=== PATIENT | female | born 1975 | race Caucasian/White ===

== ENCOUNTER 2017-05-11 07:20 | Inpatient (IN) | payer BC ==
[~2017-05-11 07:20] MED LIST: Midazolam 1 MG/ML 2 ML SDV ONE; Propofol 200 MG/20 ML SDV ONE; fentaNYL 100 MCG/2 ML SDV ONE
[2017-05-11] MEDS ORDERED: Cyanocobalamin (Vitamin B12) 1,000 MCG/ML SDV IM ONE (08:00)
[2017-05-11] MEDS ORDERED: Glycopyrrolate 0.2 MG/ML 2 ML SDV IVPUSH ONE (08:00)
[2017-05-11] MEDS ORDERED: Lactated Ringers 1,000 ML IV SCH (08:00)
[2017-05-11] MEDS ORDERED: MVI, Adult with Vitamin K 10 ML, Thiamine 200 MG, Chromium/Copper/Mang/Selen/Zn 1 ML in... IV ONE ×4 (09:00)
[2017-05-11] MEDS ORDERED: Ondansetron 4 MG/2 ML SDV ONE (09:48)
[2017-05-11] MEDS ORDERED: HYDROmorphone/Normal Saline 15 MG/30 ML PCA IV PRN (10:54)
[2017-05-11] MEDS ORDERED: Naloxone 0.4 MG/ML SDV IV PRN (10:55)
[2017-05-11] MEDS: Dextrose 5%-Lactated Ringers 1,000 ML IV SCH ×2 (11:05→19:18)
[2017-05-11] MEDS: Pantoprazole 40 MG Vial IV SCH (14:13)
[2017-05-11] MEDS: Ondansetron 4 MG/2 ML SDV IVPUSH PRN ×2 (14:15→21:42)
[2017-05-11] MEDS: Methocarbamol 500 MG Tab PO SCH ×2 (14:16→21:38)
[2017-05-11] MEDS ORDERED: Scopolamine 1.5 MG Transdermal Patch TRDERM PRN (17:46)
[2017-05-11] MEDS: Hydroxychloroquine 200 MG Tab PO SCH (21:37)
[2017-05-11] MEDS ORDERED: fentaNYL 25 MCG/HR Transdermal Patch TRDERM SCH (23:59)
[2017-05-12] MEDS ORDERED: fentaNYL 25 MCG/HR Transdermal Patch TRDERM SCH
[2017-05-12] MEDS: Dextrose 5%-Lactated Ringers 1,000 ML IV SCH ×2 (03:16→11:15)
[2017-05-12] MEDS ORDERED: Bupivacaine 0.5%/EPINEPHrine 1:200,000 50 ML MDV ONE (06:00)
[2017-05-12] MEDS ORDERED: Meropenem 500 MG SDV ONE (06:00)
[2017-05-12] MEDS ORDERED: Albuterol/Ipratropium 3.0-0.5 MG/3 ML Neb Soln NEB ONE (06:30)
[2017-05-12] MEDS ORDERED: Dexamethasone 4 MG/ML SDV ONE (06:40)
[2017-05-12] MEDS ORDERED: Ondansetron 4 MG/2 ML SDV ONE (06:40)
[2017-05-12] MEDS ORDERED: Rocuronium 50 MG/5 ML Vial ONE (06:40)
[2017-05-12] MEDS ORDERED: Neostigmine Methylsulfate 1 MG/ML 5 ML Syringe ONE (06:40)
[2017-05-12] MEDS ORDERED: Glycopyrrolate 0.2 MG/ML 5 ML MDV ONE (06:40)
[2017-05-12] MEDS ORDERED: Succinylcholine 200 MG/10 ML MDV ONE (06:40)
[2017-05-12] MEDS ORDERED: Propofol 200 MG/20 ML SDV ONE (06:40)
[2017-05-12] MEDS ORDERED: cefOXitin 2 GM in Sodium Chloride 0.9% 50 ML IV ONE (07:00)
[2017-05-12] MEDS ORDERED: Lactated Ringers 1,000 ML ONE (07:09)
[2017-05-12] MEDS ORDERED: fentaNYL 250 MCG/5 ML SDV ONE (08:04)
[2017-05-12] MEDS ORDERED: hydrOXYzine HCl 100 MG/2 ML SDV IM ONE (08:20)
[2017-05-12] MEDS ORDERED: VERIFY FENTANYL PATCH TOP SCH (09:00)
[2017-05-12] MEDS ORDERED: FENTANYL PATCH CHECK TOP SCH (09:00)
[2017-05-12] MEDS: VERIFY SCOP PATCH TOP SCH (09:47)
[2017-05-12] MEDS ORDERED: diphenhydrAMINE 50 MG/ML SDV IVPUSH PRN (11:00)
[2017-05-12] MEDS ORDERED: SCOPOLAMINE PATCH CHECK TOP SCH (11:00)
[2017-05-12] MEDS ORDERED: Labetalol 20 MG/4 ML Syringe IVPUSH PRN (11:00)
[2017-05-12] MEDS ORDERED: hydrOXYzine HCl 100 MG/2 ML SDV IM PRN (11:00)
[2017-05-12] MEDS: Pantoprazole 40 MG Vial IV SCH (11:19)
[2017-05-12] MEDS: Acetaminophen Soln 650 MG/20.3 ML UD Cup PO SCH ×3 (11:19→23:33)
[2017-05-12] MEDS: cefOXitin 2 GM in Sodium Chloride 0.9% 50 ML IV SCH ×3 (11:36→23:33)
[2017-05-12] MEDS: Hydroxychloroquine 200 MG Tab PO SCH (12:03)
[2017-05-12] MEDS: Methocarbamol 500 MG Tab PO SCH (12:03)
[2017-05-12] MEDS: Ondansetron 4 MG/2 ML SDV IVPUSH PRN (15:06)
[2017-05-12] MEDS ORDERED: MVI, Adult with Vitamin K 10 ML, Chromium/Copper/Mang/Selen/Zn 1 ML in Dextrose 5%-Lact... IV SCH ×3 (16:00)
[2017-05-12] MEDS: Gabapentin 250 MG/5 ML Solution ML 470 ML Bottle PO SCH ×2 (16:50→20:04)
[2017-05-12] MEDS: MVI, Adult with Vitamin K 10 ML, Thiamine 200 MG, Chromium/Copper/Mang/Selen/Zn 1 ML in... IV SCH ×4 (16:50)
[2017-05-12] MEDS: Heparin Sodium 5,000 Units/ML Vial SUBCUT SCH (17:27)
[2017-05-12] MEDS ORDERED: Hydroxychloroquine 200 MG Tab PO SCH (21:00)
[2017-05-12] MEDS: VERIFY FENTANYL PATCH TOP SCH (21:29)
[2017-05-13] MEDS: Heparin Sodium 5,000 Units/ML Vial SUBCUT SCH ×2 (03:34→15:32)
[2017-05-13] MEDS: cefOXitin 2 GM in Sodium Chloride 0.9% 50 ML IV SCH (05:26)
[2017-05-13] MEDS: Acetaminophen Soln 650 MG/20.3 ML UD Cup PO SCH ×3 (05:26→17:05)
[2017-05-13] MEDS: Methocarbamol 500 MG Tab PO SCH ×3 (08:23→21:52)
[2017-05-13] MEDS: Celecoxib 200 MG Cap PO SCH (08:23)
[2017-05-13] MEDS: Hydroxychloroquine 200 MG Tab PO SCH (08:23)
[2017-05-13] MEDS: VERIFY FENTANYL PATCH TOP SCH ×2 (08:24→21:50)
[2017-05-13] MEDS: VERIFY SCOP PATCH TOP SCH (08:24)
[2017-05-13] MEDS ORDERED: METHOCARBAMOL 1500 MG PO SCH (09:00)
[2017-05-13] MEDS ORDERED: Hydroxychloroquine 200 MG Tab PO SCH (09:00)
--- NOTE | 2017-05-13 09:11 | PN ---
DATE OF SERVICE: 05/13/2017 SUBJECTIVE: Alison had a temp max of 101.3. She has been up, ambulating. IV was decreased last night due to increase of urine output. REVIEW OF SYSTEMS: Remainder of review of systems is negative for any pertinent positives and negatives. OBJECTIVE: GENERAL: Alison Santillan is a pleasant 41-year-old female. VITAL SIGNS: TPR is 98.9, 91, 17, blood pressure 125/65. HEENT: Negative. NECK: Supple. HEART: Regular rate and rhythm. LUNGS: Clear. ABDOMEN: Dressings dry and intact. Abdominal binder is on. EXTREMITIES: Without peripheral edema. ASSESSMENT: 1. Exploratory laparotomy with revision of the jejunostomy, and placement of Interceed mesh. Date of surgery 05/12/2017. 2. Esophagogastroduodenoscopy on 05/11/2017. Leonidas Sam M.D. PLAN: 1. Discontinue RHEUMATOLOGY SPECIALIST and continuous pulse ox. 2. Rx Percocet 5/325 mg 1 to 2 every 4 hours p.r.n. pain. 3. Step 2 gastric bypass diet. 4. Senokot-S 2 b.i.d. May discontinue after having a bowel movement. 5. Discontinue Allison catheter. Check UA and UC before discontinuing catheter. 6. Home medications were reviewed and ordered according to what she takes at home. Plaquenil 400 mg p.o. daily, and she takes methocarbamol 1500 mg t.i.d. Neurontin, she prefers to have that over the gabapentin. Gabapentin was discontinued. 7. Good pulmonary toilet encouraged. 8. We will evaluate p.r.n. or in a.m. Suzie Sarmiento PA-C /[id number]
[2017-05-13] MEDS: Dextrose 5%-Lactated Ringers 1,000 ML IV SCH ×2 (11:48→21:25)
[2017-05-13] MEDS: Pantoprazole 40 MG Vial IV SCH (11:48)
[2017-05-13] MEDS: Acetaminophen/oxyCODONE 325-5 MG Tab PO PRN ×3 (14:58→23:25)
[2017-05-13] MEDS: MVI, Adult with Vitamin K 10 ML, Thiamine 200 MG, Chromium/Copper/Mang/Selen/Zn 1 ML in... IV SCH ×4 (15:32)
[2017-05-13] MEDS: Ondansetron 4 MG/2 ML SDV IVPUSH PRN (19:17)
[2017-05-14] MEDS: Acetaminophen Soln 650 MG/20.3 ML UD Cup PO SCH ×2 (00:37→06:14)
[2017-05-14] MEDS: Heparin Sodium 5,000 Units/ML Vial SUBCUT SCH ×2 (04:11→17:09)
[2017-05-14] MEDS: Dextrose 5%-Lactated Ringers 1,000 ML IV SCH ×2 (06:31→22:30)
[2017-05-14] MEDS ORDERED: Acetaminophen 325 MG Tab PO PRN (07:14)
[2017-05-14] MEDS ORDERED: Sodium Chloride 0.9% 10 ML Syringe FLUSH ONE (07:36)
[2017-05-14] MEDS ORDERED: Iohexol 300 MG/ML 30 ML Bottle PO ONE (07:36)
[2017-05-14] MEDS ORDERED: Iopamidol 612 MG/ML 150 ML Bottle IV PRN (07:36)
[2017-05-14] MEDS ORDERED: Cyanocobalamin (Vitamin B12) 1,000 MCG/ML SDV IM ONE (09:00)
[2017-05-14] MEDS: Acetaminophen/oxyCODONE 325-5 MG Tab PO PRN ×3 (09:05→22:19)
[2017-05-14] MEDS: Hydroxychloroquine 200 MG Tab PO SCH (09:08)
[2017-05-14] MEDS: Methocarbamol 500 MG Tab PO SCH ×3 (09:09→20:36)
[2017-05-14] MEDS: Celecoxib 200 MG Cap PO SCH (09:09)
[2017-05-14] MEDS: VERIFY SCOP PATCH TOP SCH (09:15)
[2017-05-14] MEDS: VERIFY FENTANYL PATCH TOP SCH ×2 (09:15→20:37)
--- NOTE | 2017-05-14 09:17 | CT ---
Abdomen pelvis CT. History: Right abdominal pain. Postoperative abdomen. Technique: IV and oral contrast were administered followed by axial imaging from the lung bases exten ding through the abdomen and pelvis. Coronal images were reconstructed. Total DLP: 1276. Comparison: June 2014. Findings: Limited evaluation of the lower lung urena demonstrates no abnormalities. There are postoperative findings consistent with a prior gastric bypass procedure. There is no disten tion of the stomach. There is a surgical incision of the anterior abdominal wall with clips. Just braden p to the incision is a small collection of fluid as well as a small amount of air which is most consi stent with the recent postoperative change. A developing abscess cannot be excluded. In the inferior aspect of the right pelvis there is a surgical anastomosis which appears to involve small bowel. Ther e is no significant large or small bowel distention. There is trace free fluid within the pelvis. Th e liver, pancreas, and spleen are unremarkable. The adrenal glands are symmetric. The kidneys demonst rate symmetric excretion of contrast. Impression: 1. Surgical anastomosis in the lower aspect of the right pelvis without evidence for complication. Th ere is no significant large or small bowel distention. 2. Small collection of air and fluid deep to the midline surgical incision. Correlate with timing of surgery. The finding is likely secondary to recent surgery rather than abscess. 3. Stable postoperative findings of prior gastric bypass procedure.
[2017-05-14] MEDS ORDERED: Magnesium Citrate Solution 296 ML Bottle PO ONE (10:00)
--- NOTE | 2017-05-14 10:30 | CR ---
Limited upper GI The patient is status post Jorge-en-Y gastric bypass. . There is no extravasation of contrast. The gas tric pouch empties readily into a nondilated Jorge limb. No complications are evident. Impression: 1. Status post Jorge-en-Y gastric bypass without evidence for complication.
[2017-05-14] MEDS: Lansoprazole 30 MG Orally Disintegrating Tab.CR PO SCH (11:20)
--- NOTE | 2017-05-14 13:30 | PN ---
DATE OF SERVICE: 05/14/2017 SUBJECTIVE: Alison is postop day #2. She reports an increased amount of pain. Her pain is on the right side of her incision and is an area of 6 inches that wraps around to her right flank area. She states that even brushing her skin will cause intense pain. Difficult for her to move in bed. She is not passing flatus. She was started on Senna Plus 2 tabs twice a day yesterday. She has been up ambulating, states sat on a chair quite a bit yesterday. Temperature max of 100.1 Oral intake 1530. Urine output 4250. She has had 100% of breakfast, 100% of dinner, nothing was recorded for lunch. MIKE drain put out 5 mL of a serosanguineous drainage. REVIEW OF SYSTEMS: Remainder of review of systems negative for any pertinent positives and negatives. OBJECTIVE: GENERAL: Alison Santillan is a pleasant 41-year-old female. VITAL SIGNS: TPR is 99.9, 81, 16, and blood pressure 115/60. HEENT: Negative. NECK: Supple. HEART: Regular rate and rhythm. LUNGS: Clear. ABDOMEN: Aquasol dressing is on, difficult time rolling to her back. Not able to really palpate abdomen, just getting near her skin or barely touching her skin causes increasing amount of pain. She states "something is really wrong." MIKE drain intact. EXTREMITIES: SCDs are on, and there is no peripheral edema. ASSESSMENT: Exploratory laparotomy with resection of jejunostomy and separate jejunostomy to restore Jorge-en-Y anatomy for partial small bowel obstruction at the jejunostomy. Date of surgery 05/12/2017. PLAN: 1. Remove Aquacel dressing. 2. Discontinue schedule Tylenol and change to p.r.n. 3. CT scan of abdomen and pelvis with oral and IV contrast. 4. Call with CT results. If CT scan is negative, we will give 1 bottle of MiraLAX. 5. Good pulmonary toilet encouraged. 6. We will evaluate p.r.n. or in a.m. Suzie Sarmiento PA-C /[id number]
[2017-05-14] MEDS: Ondansetron 4 MG/2 ML SDV IVPUSH PRN (13:40)
[2017-05-14] MEDS: MVI, Adult with Vitamin K 10 ML, Thiamine 200 MG, Chromium/Copper/Mang/Selen/Zn 1 ML in... IV SCH ×4 (17:08)
[2017-05-15] MEDS: Heparin Sodium 5,000 Units/ML Vial SUBCUT SCH ×2 (04:08→15:59)
[2017-05-15] MEDS: Acetaminophen/oxyCODONE 325-5 MG Tab PO PRN ×5 (04:09→22:55)
[2017-05-15] MEDS: Lansoprazole 30 MG Orally Disintegrating Tab.CR PO SCH (07:42)
--- NOTE | 2017-05-15 08:33 | PN ---
DATE OF SERVICE: 05/15/2017 SUBJECTIVE: Alison had magnesium citrate . Her CT was negative. She is starting to pass some flatus. Temp max 100. Pain is controlled. She declined to walk yesterday stating she overdid it on Sunday. REVIEW OF SYSTEMS: Remainder of review of systems negative for any pertinent positives and negatives. OBJECTIVE: GENERAL: Alison Santillan is a 41-year-old female. Color pale. She is lying in bed. VITAL SIGNS: TPR 97.6, 71, 18. Blood pressure 127/75. HEENT: Negative. NECK: Supple. HEART: Regular rate and rhythm. LUNGS: Clear. ABDOMEN: Aquacel dressing remains on. MIKE drain midline has been draining 5 mL of a light pink serosanguineous drainage. EXTREMITIES: Without peripheral edema. ASSESSMENT: Exploratory laparotomy with resection of the jejunostomy and separate jejunostomy to restore Jorge-en-Y anatomy for partial small bowel obstruction at the jejunostomy. Date of surgery 05/12/2017. PLAN: 1. Order written to remove Aquacel dressing again. 2. Dulcolax suppository b.i.d. until BM. 3. Dulcolax tabs 2 b.i.d. until BM. 4. Walk 6 to 8 times short distances, not to overdo it but just short distance as tolerated. 5. No straw to be used. The patient is Jorge-en-Y gastric bypass patient. 6. May be discharged when she has a bowel movement. 7. IV saline locked. 8. We will evaluate silver Sarmiento PA-C /[id number]
[2017-05-15] MEDS: Methocarbamol 500 MG Tab PO SCH ×3 (08:35→21:09)
[2017-05-15] MEDS: Celecoxib 200 MG Cap PO SCH (08:35)
[2017-05-15] MEDS: Hydroxychloroquine 200 MG Tab PO SCH (08:36)
[2017-05-15] MEDS: VERIFY SCOP PATCH TOP SCH (08:36)
[2017-05-15] MEDS: VERIFY FENTANYL PATCH TOP SCH ×2 (08:36→21:08)
[2017-05-15] MEDS: Bisacodyl 10 MG Supp RECTAL SCH ×3 (08:39→21:09)
[2017-05-15] MEDS ORDERED: Bisacodyl 5 MG Tab PO SCH (09:00)
[2017-05-15] MEDS: Ondansetron 4 MG/2 ML SDV IVPUSH PRN (10:14)
[2017-05-15] MEDS ORDERED: Ondansetron 4 MG Tab.DIS PO PRN (11:01)
[2017-05-16] MEDS: Acetaminophen/oxyCODONE 325-5 MG Tab PO PRN ×3 (02:39→13:34)
[2017-05-16] MEDS: Heparin Sodium 5,000 Units/ML Vial SUBCUT SCH (03:16)
[2017-05-16] MEDS: Celecoxib 200 MG Cap PO SCH (07:54)
[2017-05-16] MEDS: Lansoprazole 30 MG Orally Disintegrating Tab.CR PO SCH (07:54)
[2017-05-16] MEDS: VERIFY FENTANYL PATCH TOP SCH (07:59)
[2017-05-16] MEDS: Bisacodyl 10 MG Supp RECTAL SCH (07:59)
[2017-05-16] MEDS: VERIFY SCOP PATCH TOP SCH (08:00)
[2017-05-16] MEDS: Methocarbamol 500 MG Tab PO SCH (08:03)
[2017-05-16] MEDS: Hydroxychloroquine 200 MG Tab PO SCH (08:03)
--- NOTE | 2017-05-16 08:07 | PN ---
DATE OF SERVICE: 05/16/2017 SUBJECTIVE: Alison is postop day #4. She has had bowel stimulation but is unable to have a bowel movement. She is receiving Dulcolax suppository twice a day and she did have Dulcolax tabs in a.m. which caused some bloating, nausea, and excessive cramping. She did have one tiny hard marble type stool. Oral intake was 2310. Pain is controlled. REVIEW OF SYSTEMS: Remainder of review of systems is negative for any pertinent positives and negatives. OBJECTIVE: GENERAL: Alison Santillan is a 41-year-old female. VITAL SIGNS: TPR is 97.3, 94, 16, blood pressure 134/75. HEENT: Negative. NECK: Supple. HEART: Regular rate and rhythm. LUNGS: Clear. ABDOMEN: Stapled incision looks good. She has a midline MIKE drain which is putting out no drainage. There is some pink serous drainage in the tubing. Abdominal binder has been on. EXTREMITIES: Without peripheral edema. ASSESSMENT: Exploratory laparotomy with resection of jejunostomy and separate jejunostomy to restore Jorge-en-Y anatomy for partial small bowel obstruction at the jejunostomy. Date of surgery 05/12/2017. Surgeon, Leonidas Sam M.D. PLAN: 1. MiraLAX 119 g in 32 ounces of Gatorade or G2. She prefers [place] flavor, to drink within 20-30 minutes. 2. Good pulmonary toilet. 3. We will evaluate p.r.n. or in a.m. Suzie Sarmiento PA-C /[id number]
[2017-05-16 08:15] VITALS: BP 142/78
[2017-05-16] MEDS ORDERED: Polyethylene Glycol 3350 Powder 119 GM Bottle PO ONE (09:00)
--- NOTE | 2017-05-16 14:52 | OR ---
DATE OF PROCEDURE: 05/11/2017 PREOPERATIVE DIAGNOSIS: Nausea, vomiting, and crampy abdominal pain status post Jorge-en-Y gastric bypass. POSTOPERATIVE DIAGNOSIS: Normal endoscopic examination status post Jorge-en-Y gastric bypass (thus the diagnosis likely is a partial small bowel obstruction). OPERATIVE PROCEDURE: Upper GI endoscopy with biopsies of gastric pouch for CLOtest. ANESTHESIA: IV sedation. INDICATION FOR PROCEDURE: This is a 41-year-old female presenting with some crampy abdominal pain, nausea and vomiting, status post gastric bypass. Plan is to proceed initially with an upper GI endoscopy. Potential risks including bleeding and perforation were discussed, and the patient wishes to proceed. DETAILS OF PROCEDURE: The patient was taken to the operating room and placed in a left lateral decubitus position. IV sedation was administered, after which the upper GI endoscope was passed orally through the length of the esophagus into the gastric pouch and from there through the gastrojejunostomy roughly 20 cm into the Jorge limb. Findings exam were essentially entirely normal. There was no areas of significant stricturing or significant inflammation seen. The gastrojejunostomy was widely patent. At this point, biopsies were obtained from the gastric pouch and sent for CLOtest for H. pylori. Minimal bleeding from the biopsy site was seen and the procedure was then concluded. Given the absence of any abnormalities in the upper GI endoscopy, this patient by clinical criteria appears to most likely have a partial small bowel obstruction. The patient will be admitted for hydration and planned surgical correction tomorrow. Leonidas Sam MD /[id number]
--- NOTE | 2017-05-16 17:16 | OR ---
DATE OF PROCEDURE: 05/12/2017 PREOPERATIVE DIAGNOSIS: Partial small bowel obstruction. POSTOPERATIVE DIAGNOSES: 1. Partial small bowel obstruction at jejunojejunostomy. 2. Marked intraabdominal adhesions. OPERATIVE PROCEDURES: Exploratory laparotomy with; 1. Small bowel resection (73076). 2. Separate enteroenterostomy to reconstruct the patient's Jorge-en-Y small bowel status (69831). 3. Placement of Interceed mesh to limit recurrent adhesion formation between pelvic and abdominal wall and underlying viscera (71875). ANESTHESIA: General. CELL ROOM OPERATOR: GAY Guzman. INDICATION FOR PROCEDURE: The patient was seen yesterday with what appeared to be a partial small bowel obstruction and was admitted overnight. We initially did discuss the possibility of proceeding with a laparoscopy, but given her previous surgical procedures, and diagnosis of the small bowel obstruction and some fairly distended bowel on CT scan, the decision was made to proceed with a direct open approach. The patient has quite a bit in way of diarrhea and has presently a fairly short common limb. It was discussed with the patient that if we need to do a bowel resection, this will just be less of a problem. Potential risks including bleeding, infection, leaks from various GI tract closures, problems with further bowel obstruction over time and such were all reviewed, and the patient wishes to proceed. DETAILS OF PROCEDURE: The patient was taken to the operating room and placed in a supine position. After general endotracheal anesthesia was induced, a Allison catheter was inserted, and the abdomen was prepped and draped. A midline incision was made and carried down through the full-thickness abdominal wall. Fairly extensive adhesions between the anterior abdominal wall and omentum and small bowel were then taken down. The point of obstruction appeared to be a fixed angulation at the jejunojejunostomy where the Jorge limb came in to that area. The 3 components of the jejunojejunostomy were then divided with NETO joshua loads, and the underlying mesentery divided with mesenteric loads and that specimen was delivered from the field. Initially, what had been the biliopancreatic limb was anastomosed to the end of what would be the origin of the common limb, this with an internal firing of the EndoGIA vascular stapler, and the common opening closed transversely with the same stapler. Angles of anastomosis and mesenteric defect were reinforced with some 3-0 Vicryl stitch. The patient's previous jejunojejunostomy had been marked out only around 100 cm and, at this point, we moved the anastomosis up to around 280 to 300 cm range. At that point, the Jorge limb, which was also measured at this point to be 120 cm was anastomosed with small bowel at that level with the same sequence of jovanna. Again, the angles of anastomosis and mesenteric defect were reapproximated with some 3-0 Vicryl and silk stitch. At that point, no further problems were noted. The abdomen was irrigated with antibiotic-containing saline solution. To limit recurrent adhesion formation, an Interceed mesh was placed along the pelvic blanchard, up against the abdominal wall, underneath the incision. The midline fascia was then approximated with a #2 Vicryl stitch. A Justin-Choudhury drain was then placed inferior to the incision into the subcutaneous tissue. The subcutaneous tissue was closed with 2 layers of 3-0 and 4-0 Vicryl stitch deep and jovanna for the skin. Dressing was applied. The patient was taken to the recovery room in a satisfactory condition. Leonidas Sam MD /[id number]
--- NOTE | 2017-05-18 13:12 | DISCH ---
ADMISSION DIAGNOSES: Postprandial abdominal pain, nausea and vomiting; status post revision of Jorge-en-Y gastric bypass surgery; unspecified surgical malabsorption; B12 deficiency; and chronic diarrhea. DISCHARGE DIAGNOSES: 1. EGD and biopsies of gastric pouch for CLOtest. Date of procedure, 05/11/2017. 2. Exploratory laparotomy with small bowel resection, separate enteroenterostomy to reconstruct the patient's Jorge-en-Y small bowel status, and placement of Interceed mesh to limit recurrent adhesion formation between the pelvic and abdominal wall and underlying viscera for partial small bowel obstruction at the jejunojejunostomy and marked intraabdominal adhesions. Date of surgery is 05/12/2016. HISTORY: Alison Santillan is a pleasant female who had persistent postprandial abdominal pain and cramping. After preoperative evaluation and discussion of possible risks and possible complications, she wished to proceed with surgical procedure. HOSPITAL COURSE: She had EGD on 05/11/2017 and proceeded to have her surgery on 05/12/2017. She had no operative complications. On postop day #1, she was started on oral pain medication, a step-2 gastric bypass diet, and Senokot S. On 05/14/2017, she reported an increased amount of pain on the right side. She did have a CT scan. This was negative, and she was given mag citrate for bowel stimulation. On 05/15/2017, her IV was saline locked. She was given Dulcolax tabs 2 b.i.d. and suppository. She started passing some flatus, but did not have a bowel movement until 05/16/2017, on postop day #4. Activity was good. Her pain was well managed. She received adequate dietary instructions, and she was ready to be discharged to home. PHYSICAL EXAMINATION: GENERAL: Alison Santillan is a 41-year-old female. VITAL SIGNS: Height is 5 feet 3 inches. Weight is 199 pounds. BMI is 35.3. TPR is 98.8, 84, 14, and blood pressure 142/78. HEENT: Negative. NECK: Supple. HEART: Regular rate and rhythm. LUNGS: Clear. ABDOMEN: Jacey intact. Midline MIKE drain is intact and draining scant amount of light pink drainage. EXTREMITIES: Without peripheral edema. DISPOSITION: Discharged to home. CONDITION: Stable and improving. FOLLOWUP APPOINTMENT: With Suzie Sarmiento PA-C, on 05/22/2017 at 11 a.m. DISCHARGE MEDICATIONS: Home medications; Percocet 5/325 mg 1 to 2 every 4 hours p.r.n. pain, #40; Celebrex 200 mg p.o. daily, #14. She is to resume her home medications. DISCHARGE DIET: Step-3 gastric bypass diet. Drink 8 to 10 glasses of water a day. ACTIVITY: No lifting greater than 10 pounds for 6 weeks[address]riving, do not drive while on pain medication. Shower/bathing, keep operative site clean and dry. Wear abdominal binder for 6 weeks and then as tolerated. DISCHARGE INSTRUCTIONS: Notify provider if any fever, increased pain, nausea, or vomiting. Special instructions; 1. Use incentive spirometer 10 times every hour while awake. 2. Empty and measure MIKE drain 4 times a day and as needed.
== END 2017-05-16 14:03 | disposition home or self-care (01) | DRG 223 ==
LOC: JP.MS 07:20 → JP.SDS 07:21 → EDSTATUS 07:30 → JP.ICU 10:10 → JP.MS 05-12 09:00
PROVIDERS: ADMIT Surgery; ATTEND Surgery
PROC: 0DB68ZX Excision of Stomach, Via Natural or Artificial Opening Endoscopic, Diagnostic (ICD-10-PCS; principal; 2017-05-11)
PROC: 3E0M05Z Introduction of Adhesion Barrier into Peritoneal Cavity, Open Approach (ICD-10-PCS; 2017-05-12)
PROC: 0DN80ZZ Release Small Intestine, Open Approach (ICD-10-PCS; 2017-05-12)
PROC: 0DBA0ZZ Excision of Jejunum, Open Approach (ICD-10-PCS; 2017-05-12)
DX: K56.51 Intestinal adhesions [bands], with partial obstruction (principal); I10 Essential (primary) hypertension; G89.29 Other chronic pain; F32.9 Major depressive disorder, single episode, unspecified; K21.9 Gastro-esophageal reflux disease without esophagitis; J45.909 Unspecified asthma, uncomplicated; E55.9 Vitamin D deficiency, unspecified; Z98.84 Bariatric surgery status; Z98.0 Intestinal bypass and anastomosis status; K92.1 Melena; E53.8 Deficiency of other specified B group vitamins; K90.9 Intestinal malabsorption, unspecified; R19.7 Diarrhea, unspecified
CPT/HCPCS: 36415; 74177; 74177-26; 74240; 74240-26; 80053; 81001; 82607; 82728; 83735; 84100; 85027; 87081; 88307; 94640; 94762; A9270-GY; C9113; J0330; J0694; J1100; J1170; J1644; J2185; J2250; J2405; J2704; J2710; J3010; J3410; J3411; J3420; J3490; J7030; J7042; J7050; J7120; J7620; Q9965

== ENCOUNTER 2018-02-12 12:54 | Inpatient (IN) | payer BC, OTHER ==
[2018-02-12] MEDS ORDERED: Acetaminophen 325 MG Tab PO PRN (13:20)
[2018-02-12] MEDS ORDERED: Acetaminophen 650 MG Supp RECTAL PRN (13:20)
[2018-02-12] MEDS ORDERED: HYDROmorphone 2 MG Tab PO PRN (13:24)
[2018-02-12] MEDS ORDERED: Naloxone 0.4 MG/ML SDV IV PRN (13:29)
[2018-02-12] MEDS: Ondansetron 4 MG/2 ML SDV IV PRN ×2 (13:55→19:54)
[2018-02-12] MEDS: HYDROmorphone/Normal Saline 15 MG/30 ML PCA IV PRN (13:57)
[2018-02-12] MEDS: Dextrose 5%-Lactated Ringers 1,000 ML IV SCH ×2 (14:00→23:29)
[2018-02-12] MEDS ORDERED: Iopamidol 612 MG/ML 150 ML Bottle IV PRN (14:35)
[2018-02-12] MEDS ORDERED: Sodium Chloride 0.9% 80 ML IV SCH (14:45)
--- NOTE | 2018-02-12 15:09 | CT ---
CT Abdomen Pelvis w Cont CLINICAL HISTORY: Postprandial pain COMPARISON: 29 May 2017. TECHNIQUE: Axial tomographic images are obtained from the dome of the diaphragm to the pubic symphysi s with IV contrast enhancement. No oral contrast was used. Auto dosage reduction and iterative recons truction techniques employed. FINDINGS: The lung bases are clear. The liver shows no mass or biliary dilatation. The gallbladder hernandez s been removed. The spleen has a normal size and shape. There is a small splenule.The pancreas shows no mass or inflammatory change.The adrenal glands appear normal bilaterally. The kidneys show no ston es or hydronephrosis. The aorta has a normal contour. There is no suspicious retroperitoneal adenopat hy. There is a ventral hernia above the umbilicus. This contains the peritoneal fat. There is no evidence of bowel incarceration. The hernia is increased in size since the 2017 study There is some thickenin g of the sigmoid colon with the generalized diverticulosis. This is similar in appearance to the prio r study and likely represents muscularis hypertrophy from diverticulosis. The abdominal pelvic fat pl anes are well demarcated. The appendix has a normal contour IMPRESSION: No hernias increase in size since prior study. There is no evidence of incarceration. Patient is status post gastric bypass. There is no evidence of obstruction. Previous cholecystectomy Changes of sigmoid diverticulosis without evidence of diverticulitis
[2018-02-12] MEDS ORDERED: Lactated Ringers 1,000 ML IV ONE (15:30)
[2018-02-12] MEDS: Pantoprazole 40 MG Vial IV SCH (16:23)
[2018-02-12] MEDS: Scopolamine 1.5 MG Transdermal Patch TOP SCH (16:23)
[2018-02-13] MEDS: Dextrose 5%-Lactated Ringers 1,000 ML IV SCH (06:12)
[2018-02-13] MEDS ORDERED: Midazolam 1 MG/ML 2 ML SDV ONE (07:07)
[2018-02-13] MEDS ORDERED: fentaNYL 100 MCG/2 ML SDV ONE (07:07)
[2018-02-13] MEDS ORDERED: Propofol 200 MG/20 ML SDV ONE (07:07)
[2018-02-13] MEDS: Ondansetron 4 MG/2 ML SDV IV PRN ×4 (07:11→23:41)
[2018-02-13] MEDS ORDERED: Ondansetron 4 MG/2 ML SDV ONE (07:25)
[2018-02-13] MEDS ORDERED: Dextrose 5%-Lactated Ringers 1,000 ML IV SCH (08:45)
--- NOTE | 2018-02-13 09:23 | PN ---
DATE OF SERVICE: 02/13/2018 SUBJECTIVE: Alison continues to report abdominal pain and she is n.p.o. for EGD today. Vital signs have been stable. She has been on clear liquids, had 90 mL in, but n.p.o. after midnight. She has had no diarrhea since admission. REVIEW OF SYSTEMS: Remainder of review of systems negative for any pertinent positives and negatives. OBJECTIVE: GENERAL: Alison is a 42-year-old female, who currently is quite nauseated. VITAL SIGNS: TPR is 97.6, 47, 16, blood pressure is 110/52. HEENT: Negative. NECK: Supple. HEART: Regular rate and rhythm. LUNGS: Clear. ABDOMEN: Remains to have generalized tenderness. She has two incisional hernias. EXTREMITIES: Without peripheral edema. ASSESSMENT: 1. Postprandial abdominal pain and left upper quadrant incisional hernias without obstruction or gangrene. 2. Elevated liver function test. 3. SP Jorge-en-Y gastric bypass surgery. 4. SP Jorge-en-Y revision of gastric bypass surgery. 5. Unspecified surgical malabsorption. 6. B12 deficiency. 7. Other forms of systemic lupus erythematosus. 8. Tension type headaches, not retractable. 9. Intermittent asthma. 10.Iron deficiency anemia. 11.Fibromyalgia. 12.Migraine headache without aura and without status migrainosus, not retractable. 13.Obesity, BMI 33.7. PLAN: EGD with IV sedation this morning. Iron infusions one today and one tomorrow. We will evaluate p.r.n. or in a.m. pending results of EGD. Plan of care will be determined per Leonidas Sam MD. We will evaluate p.r.n. or in a.m.. See copy of completed H and P scanned in under reports. Suzie Sarmiento PA-C /[id number]
[2018-02-13] MEDS ORDERED: Sodium Ferric Gluconate Cmplex 250 MG in Sodium Chloride 0.9% 100 ML IV SCH (11:00)
[2018-02-13] MEDS: Methocarbamol 500 MG Tab PO SCH ×3 (11:20→20:43)
[2018-02-13] MEDS: VERIFY SCOP PATCH TOP SCH (11:21)
[2018-02-13] MEDS: MVI, Adult with Vitamin K 10 ML, Chromium/Copper/Mang/Selen/Zn 1 ML in Dextrose 5%-Lact... IV SCH ×6 (11:33→19:21)
[2018-02-13] MEDS: Sodium Ferric Gluconate Cmplex 250 MG in Sodium Chloride 0.9% 100 ML IV SCH (11:37)
--- NOTE | 2018-02-13 13:20 | OR ---
DATE OF PROCEDURE: 02/13/2018 PREOPERATIVE DIAGNOSIS: Nausea. POSTOPERATIVE DIAGNOSES: Nausea associated with normal upper GI endoscopic examination, status post Jorge-en-Y gastric bypass. OPERATIVE PROCEDURE: Upper GI endoscopy. ANESTHESIA: IV sedation. INDICATION FOR PROCEDURE: The patient was admitted overnight with a picture of persistent upper abdominal pain and nausea. The plan is proceed with upper GI endoscopy with biopsies and dilation as indicated. Potential risks including bleeding and perforation were discussed, and the patient wishes to proceed. DETAILS OF PROCEDURE: The patient was taken to the operating room, and placed in a left lateral decubitus position. IV sedation was administered, after which the upper GI endoscope was passed orally through the length of esophagus and into the gastric pouch, from there through the gastrojejunostomy, roughly 20 cm into the Jorge limb. Overall, the entire study was normal. There were no areas of inflammation, stricturing or back-up of any bile or retained food within the system. Overall, no abnormalities were noted. The scope was then withdrawn and the above findings reconfirmed. The patient was taken to the recovery room in satisfactory condition. Leonidas Sam MD /[id number]
[2018-02-13] MEDS: Pantoprazole 40 MG Vial IV SCH (14:25)
[2018-02-14] MEDS: Dextrose 5%-Lactated Ringers 1,000 ML IV SCH ×3 (03:42→22:49)
[2018-02-14] MEDS: Ondansetron 4 MG/2 ML SDV IV PRN ×3 (06:21→19:05)
[2018-02-14] MEDS ORDERED: Meropenem 500 MG SDV ONE (07:23)
--- NOTE | 2018-02-14 09:19 | PN ---
DATE OF SERVICE: 02/14/2018 SUBJECTIVE: She is n.p.o. for a diagnostic laparotomy, case to follow later this morning or early afternoon. She reports that she continues to have pain, 4/10. Has had nausea twice in the past 24 hours. Vital signs have been stable. Potassium was 3.4. REVIEW OF SYSTEMS: Remainder of review of systems negative for any pertinent positives and negatives. OBJECTIVE: GENERAL: Alison Santillan is a 42-year-old female. She is sitting in the chair, alert and orientated. VITAL SIGNS: TPR 97.7, 54, 16, and blood pressure 127/56. HEENT: Negative. NECK: Supple. HEART: Regular rate and rhythm. LUNGS: Clear. ABDOMEN: Tenderness in the left upper and left mid-quadrant. Hernia noted in the right oocar-me-rab quadrant, soft and reducible, but tender. EXTREMITIES: Without peripheral edema. ASSESSMENT: 1. Postprandial abdominal pain, left upper quadrant, incisional hernias without obstruction or gangrene. 2. EGD. 3. Status post Jorge-en-Y gastric bypass surgery, status post revision of Jorge-en-Y gastric bypass surgery. 4. Unspecified malabsorption. 5. B12 deficiency. 6. Other forms of systemic lupus erythematosus. 7. Tension headaches. 8. Intermittent asthma. 9. Iron deficiency anemia. 10.Fibromyalgia. 11.Migraine headache. 12.Upper GI endoscopy, date 02/13/2018, Leonidas Sam MD. PLAN: 1. Remain n.p.o. 2. Rx K acetate 20 mEq IV, one time now. 3. We will evaluate p.r.n. or in a.m. Suzie Sarmiento PA-C /[id number]
[2018-02-14] MEDS: Sodium Ferric Gluconate Cmplex 250 MG in Sodium Chloride 0.9% 100 ML IV SCH (09:34)
[2018-02-14] MEDS: VERIFY SCOP PATCH TOP SCH (09:34)
[2018-02-14] MEDS: Methocarbamol 500 MG Tab PO SCH ×2 (09:34→13:42)
[2018-02-14] MEDS ORDERED: Ropivacaine 43 ML, Dexamethasone 8 MG, EPINEPHrine 0.4 MG, Sodium Chloride 0.9% 34.6 ML NERVRT SCH ×4 (10:00)
[2018-02-14] MEDS ORDERED: cefOXitin 2 GM in Sodium Chloride 0.9% 50 ML IV ONE (10:00)
[2018-02-14] MEDS ORDERED: Lidocaine 0.4%/D5W 2 GM/500 ML BAG IV SCH (10:00)
[2018-02-14] MEDS ORDERED: Lidocaine 2% 100 MG/5 ML Syringe IVPUSH ONE (10:00)
[2018-02-14] MEDS ORDERED: Ketamine 500 MG/5 ML MDV IV SCH (10:00)
[2018-02-14] MEDS ORDERED: fentaNYL 250 MCG/5 ML SDV ONE (10:59)
[2018-02-14] MEDS ORDERED: Rocuronium 50 MG/5 ML Vial ONE ×2 (11:00→14:20)
[2018-02-14] MEDS ORDERED: Propofol 200 MG/20 ML SDV ONE (11:00)
[2018-02-14] MEDS ORDERED: Dexamethasone 4 MG/ML SDV ONE (11:00)
[2018-02-14] MEDS ORDERED: Glycopyrrolate 0.2 MG/ML 5 ML MDV ONE (11:00)
[2018-02-14] MEDS ORDERED: Succinylcholine 200 MG/10 ML MDV ONE (11:00)
[2018-02-14] MEDS ORDERED: Neostigmine Methylsulfate 1 MG/ML 5 ML Syringe ONE (11:00)
[2018-02-14] MEDS ORDERED: Ondansetron 4 MG/2 ML SDV ONE (11:00)
[2018-02-14] MEDS: Pantoprazole 40 MG Vial IV SCH (13:22)
[2018-02-14] MEDS ORDERED: fentaNYL 100 MCG/2 ML SDV ONE (15:19)
[2018-02-14] MEDS ORDERED: hydrOXYzine HCl 100 MG/2 ML SDV IM ONE (16:27)
[2018-02-14] MEDS ORDERED: hydrOXYzine HCl 100 MG/2 ML SDV ONE (16:31)
[2018-02-14] MEDS ORDERED: Methocarbamol 500 MG Tab PO PRN (16:44)
[2018-02-14] MEDS ORDERED: hydrOXYzine HCl 100 MG/2 ML SDV IM PRN (17:00)
[2018-02-14] MEDS ORDERED: Metoclopramide 10 MG/2 ML SDV IVPUSH PRN (17:00)
[2018-02-14] MEDS ORDERED: Pantoprazole 40 MG Vial IVPUSH SCH (17:00)
[2018-02-14] MEDS ORDERED: diphenhydrAMINE 50 MG/ML SDV IVPUSH PRN (17:00)
[2018-02-14] MEDS ORDERED: Labetalol 20 MG/4 ML Syringe IVPUSH PRN (17:00)
[2018-02-14] MEDS: Acetaminophen Soln 650 MG/20.3 ML UD Cup PO SCH (17:48)
[2018-02-14] MEDS: cefOXitin 2 GM in Sodium Chloride 0.9% 50 ML IV SCH (17:48)
[2018-02-14] MEDS ORDERED: MVI, Adult with Vitamin K 10 ML, Thiamine 200 MG, Chromium/Copper/Mang/Selen/Zn 1 ML in... IV SCH ×4 (18:00)
[2018-02-14] MEDS ORDERED: Sodium Ferric Gluconate Cmplex 250 MG in Sodium Chloride 0.9% 100 ML IV ONE (18:00)
[2018-02-14] MEDS: Heparin Sodium 5,000 Units/ML Vial SUBCUT SCH (20:03)
[2018-02-14] MEDS: HYDROmorphone/Normal Saline 15 MG/30 ML PCA IV PRN (20:31)
[2018-02-14] MEDS ORDERED: HYDROmorphone/Normal Saline 15 MG/30 ML PCA IV SCH (21:45)
[2018-02-15] MEDS: cefOXitin 2 GM in Sodium Chloride 0.9% 50 ML IV SCH ×5 (00:06→23:51)
[2018-02-15] MEDS: Acetaminophen Soln 650 MG/20.3 ML UD Cup PO SCH ×5 (00:08→23:51)
[2018-02-15] MEDS ORDERED: Iohexol 647 MG/ML 50 ML SDV PO STA (01:27)
[2018-02-15] MEDS: Dextrose 5%-Lactated Ringers 1,000 ML IV SCH ×2 (04:28→12:30)
[2018-02-15] MEDS ORDERED: HYDROmorphone/Normal Saline 15 MG/30 ML PCA IV PRN (07:08)
[2018-02-15] MEDS: Heparin Sodium 5,000 Units/ML Vial SUBCUT SCH ×2 (08:21→20:01)
[2018-02-15] MEDS: SCOPOLAMINE PATCH CHECK TOP SCH (08:23)
[2018-02-15] MEDS: VERIFY SCOP PATCH TOP SCH (08:24)
--- NOTE | 2018-02-15 08:31 | PN ---
DATE OF SERVICE: 02/15/2018 SUBJECTIVE: Alison is postoperative day 1. Her pain is controlled. She has been up and ambulated about 80 feet. Reports an area in her left lateral thigh feeling numb and reports generalized itching. Vital signs have been stable. Oral intake 240. Urine output 4325. REVIEW OF SYSTEMS: Remainder of review of systems negative for any pertinent positives and negatives. OBJECTIVE: GENERAL: Alison Santillan is a 42-year-old female. She is alert and orientated, resting in bed. VITAL SIGNS: TPR 99.7, 74, 18, blood pressure 122/61. HEENT: Negative. NECK: Supple. HEART: Regular rate and rhythm. LUNGS: Clear. ABDOMEN: Dressings dry and intact. Abdominal binder is on. EXTREMITIES: Without peripheral edema. ASSESSMENT: Insertion of right subclavian triple lumen exploratory laparotomy with lysis of extensive adhesions, small bowel resection, secondary enterostomy to re-establish Jorge-en-Y anatomy, small bowel stricturoplasty and repair of incarcerated incisional hernia and placement of Interceed mesh, for limited peripheral vein access, partial small bowel obstruction secondary to inflammatory response at the JJ, separate small-bowel stricture, incarcerated incisional hernia and intraabdominal adhesions. Date of surgery 02/14/2018. Surgeon, Leonidas Sam MD. PLAN: 1. May shower step 2 gastric bypass diet without cereal. 2. Decrease IV to 100 mL per hour, Zofran ODT 4 mg q.4 hours p.r.n. nausea, vomiting. 3. Good pulmonary toilet. We will evaluate p.r.n. or in a.m. Suzie Sarmiento PA-C /[id number]
--- NOTE | 2018-02-15 08:42 | CR ---
CHEST: Portable CLINICAL HISTORY:Postop COMPARISON:None FINDINGS: Superimposition exaggerates heart size. Pulmonary vascularity is normal. No infiltrate or pneumothorax is seen. There is postsurgical changes in the upper abdomen. IMPRESSION: Limited study No acute cardiopulmonary process
--- NOTE | 2018-02-15 08:43 | CR ---
UGI wo KUB HISTORY: eval R -Y GBP FINDINGS: After administration of oral contrast, upright views were obtained. Post operative changes gastric bypass. Surgical drains in place. No evidence for leak. Contrast passes freely into proximal small bowel loops. IMPRESSION: No evidence for leak or obstruction.
[2018-02-15] MEDS: Pantoprazole 40 MG Delayed-Release Granules 1 Packet PO SCH (13:55)
[2018-02-15] MEDS: Scopolamine 1.5 MG Transdermal Patch TOP SCH (15:55)
[2018-02-15] MEDS: MVI, Adult with Vitamin K 10 ML, Thiamine 200 MG, Chromium/Copper/Mang/Selen/Zn 1 ML in... IV SCH ×4 (16:00)
[2018-02-16] MEDS: Dextrose 5%-Lactated Ringers 1,000 ML IV SCH ×3 (03:54→23:36)
[2018-02-16] MEDS: cefOXitin 2 GM in Sodium Chloride 0.9% 50 ML IV SCH ×2 (05:38→11:37)
[2018-02-16] MEDS: Acetaminophen Soln 650 MG/20.3 ML UD Cup PO SCH (05:38)
[2018-02-16] MEDS: Heparin Sodium 5,000 Units/ML Vial SUBCUT SCH ×2 (08:01→20:02)
[2018-02-16] MEDS: Bisacodyl 5 MG Tab PO SCH ×2 (08:01→20:02)
[2018-02-16] MEDS: SCOPOLAMINE PATCH CHECK TOP SCH (08:02)
[2018-02-16] MEDS: Docusate Sodium 100 MG Cap PO SCH ×2 (08:02→20:02)
[2018-02-16] MEDS: Acetaminophen/oxyCODONE 325-5 MG Tab PO PRN ×4 (08:06→21:32)
[2018-02-16] MEDS ORDERED: Cyanocobalamin (Vitamin B12) 1,000 MCG/ML SDV IM ONE (09:00)
[2018-02-16] MEDS: Sodium Ferric Gluconate Cmplex 250 MG in Sodium Chloride 0.9% 100 ML IV SCH (09:09)
--- NOTE | 2018-02-16 10:06 | PN ---
DATE OF SERVICE: 02/16/2018 The patient has been afebrile with stable vital signs. Oral intake was fair. We will work on getting that improving a little bit more today. Iron levels were low on admission, and we will give her some iron gluconate today as well as tomorrow and, otherwise, begin bowel stimulation, maximize activity and work with pulmonary toilet. Leonidas Sam MD /[id number]
[2018-02-16] MEDS: MVI, Adult with Vitamin K 10 ML, Thiamine 200 MG, Chromium/Copper/Mang/Selen/Zn 1 ML in... IV SCH ×8 (13:14→16:04)
[2018-02-16] MEDS: Pantoprazole 40 MG Delayed-Release Granules 1 Packet PO SCH (13:15)
[2018-02-16] MEDS: Ondansetron 4 MG Tab.DIS PO PRN (21:32)
[2018-02-17] MEDS: Acetaminophen/oxyCODONE 325-5 MG Tab PO PRN ×5 (01:37→21:17)
[2018-02-17] MEDS: Heparin Sodium 5,000 Units/ML Vial SUBCUT SCH ×2 (07:58→19:43)
[2018-02-17] MEDS: Docusate Sodium 100 MG Cap PO SCH ×2 (08:01→21:17)
[2018-02-17] MEDS: Sodium Ferric Gluconate Cmplex 250 MG in Sodium Chloride 0.9% 100 ML IV SCH (10:25)
--- NOTE | 2018-02-17 12:56 | PN ---
DATE OF SERVICE: 02/17/2018 The patient has been afebrile with stable vital signs. She did move her bowels. We will discontinue the oral Dulcolax tablets at this point. I think we will move her up to a step- 3 diet and make sure she tolerates that and will likely be ready for discharge home tomorrow. Leonidas Sam MD /[id number]
[2018-02-17] MEDS: Pantoprazole 40 MG Delayed-Release Granules 1 Packet PO SCH (14:36)
[2018-02-17] MEDS: MVI, Adult with Vitamin K 10 ML, Thiamine 200 MG, Chromium/Copper/Mang/Selen/Zn 1 ML in... IV SCH ×4 (15:34)
[2018-02-18] MEDS: Ondansetron 4 MG Tab.DIS PO PRN ×2 (02:07→07:24)
[2018-02-18] MEDS: Acetaminophen/oxyCODONE 325-5 MG Tab PO PRN ×2 (02:08→07:24)
[2018-02-18] MEDS: Heparin Sodium 5,000 Units/ML Vial SUBCUT SCH (07:33)
[2018-02-18 08:00] VITALS: BP 134/75
--- NOTE | 2018-02-18 08:48 | OR ---
DATE OF PROCEDURE: 02/14/2018 PREOPERATIVE DIAGNOSES: 1. Limited peripheral venous access. 2. Probable partial small bowel obstruction. 3. Incisional hernia. POSTOPERATIVE DIAGNOSES: 1. Limited peripheral venous access. 2. Partial small bowel obstruction secondary to exaggerated inflammatory response at jejunojejunostomy. 3. Separate small bowel stricture. 4. Incarcerated incisional hernia. 5. Extensive intraabdominal adhesions. OPERATIVE PROCEDURE: 1. Insertion of left subclavian vein triple-lumen catheter (40192). 2. Exploratory laparotomy with lysis of extensive adhesions, and: a. Small bowel resection (11253). b. Secondary enteroenterostomy to reestablish Jorge-en-Y small bowel anatomy (02086). c. Small bowel stricturoplasty (40404). d. Repair of incarcerated incisional hernia (84562). e. Placement of Interceed mesh to limit recurrent adhesion formation between pelvic and abdominal wall and the underlying viscera (68524). ANESTHESIA: General. TRANSPORTATION ENGINEER: Suzie Sarmiento PA-C. INDICATION FOR PROCEDURE: The patient presents with persistent nausea, abdominal pain, and clinically appears to most likely have a partial small bowel obstruction. She also has very limited peripheral venous access, and the plan will be to proceed with a central line placement, along with exploratory laparotomy with procedures as indicated, which would include lysis of adhesions, small bowel resections. She also has an incisional hernia in the epigastric portion of her midline incision, which will be concurrently repaired; the latter would be repaired with mesh repair, if bowel work is not required, but that would be closed without mesh, if we need to do any bowel resections or other procedures entailing the opening of the GI tract. Potential risks of the procedure including bleeding, infection, injury to underlying viscera, possible infection of any mesh that might be placed, recurrence of hernia, as well as recurrence of problems with bowel obstruction over time were all reviewed, and the patient wishes to proceed. DETAILS OF PROCEDURE: The patient was taken to the operating room. After general endotracheal anesthesia was induced, a Allison catheter was inserted, and the upper chest and neck areas were prepped and draped. The left subclavian vein was then cannulated. A guidewire was passed and over the guidewire, a triple-lumen catheter was positioned. Good in and outflow was noted. The ports were flushed with heparinized saline and the catheter sutured to skin with some 3-0 silk stitch and a dressing applied. Subsequent x-ray showed no complications and adequate placement of the line. The previous upper midline incision was then made and carried down through the skin and subcutaneous tissue, down to roughly the level of the umbilicus. In the upper aspect, the area of the incisional hernia was encountered. This contained some incarcerated omentum, as well as small edge of the transverse colon. The latter structures were dissected away from the hernia sac and the hernia sac then excised. The patient, beyond that, had quite extensive additional adhesions. Eventually, these were taken down and exploration revealed a quite intense inflammatory response at the present jejunojejunostomy that did not appear to be amenable to simply lysis of adhesions. The patient also, in the mid portion of the common limb, had a separate area of stricturing of the small bowel where it had been adherent into the posterior retroperitoneal area. At this point, the 3 components of the Jorge-en-Y anatomy were divided with NETO jovanna, as was the underlying mesentery, and that specimen was delivered from the field. Small bowel continuity was established initially with a [id number] enteroenterostomy between what had been the end of the Jorge limb to the proximal end of the common limb. This was done with internal firing of the NETO joshua load and transverse closure of the common opening with a purple NETO load and the mesentery then closed with some 2-0 silk stitch. Angles of anastomosis were reinforced with some 3-0 Vicryl stitch as well. The Jorge-en-Y anatomy was then reestablished with a secondary anastomosis done between the end of the biliopancreatic limb and the bowel roughly 20 cm distal to the first anastomosis. This was done with the same staple sequence, and again, angles of anastomosis were reinforced with some 3-0 Vicryl stitch and the mesenteric defect closed with a 2-0 silk stitch. The area of the stricture in the mid small bowel was then addressed. A small opening was made in this area and some of the overlying tissue adherent to it excised with bowel placed [id number], after opening was made. Initially, a NETO 60 mm stapler and then a 45 mm stapler were placed to create an internal opening, these with joshua loads, common opening was then closed with purple loads, and in this case, there was no mesenteric defect to control. Angles were anastomosed and were reinforced with some 3-0 Vicryl stitch. At this point, no further problems were noted. The abdomen was irrigated with antibiotic- containing saline solution. It was felt the patient was a high risk for significant problems with recurrent adhesion formation between the viscera, specifically the small bowel, as there was no omentum available to cover the incision. Given this, an Interceed mesh was placed from the pelvis up underneath the abdominal wall, including the incision. The midline fascia was then approximated with a #2 Vicryl stitch, and this included closure of the incisional hernia. The subcutaneous tissue was then approximated with 2 layers of #3- 0 Vicryl stitch and the skin with jovanna. Dressing was applied. The patient was taken to the recovery room in satisfactory condition. There were no evident complications. Physician certified pharmacist assistant, Suzie Sarmiento, played an essential role in assisting in this case, helping in positioning the patient, retracting structures as needed, as well as suturing and cutting sutures when indicated. Her presence improved patient safety and decreased the operative time. Leonidas Sam MD /[id number]
--- NOTE | 2018-02-18 10:04 | DISCH ---
ADMISSION DIAGNOSES: 1. Postprandial abdominal pain in left upper quadrant. 2. Incisional hernia without obstruction and gangrene. 3. Elevated liver function test. 4. Bariatric surgery status, other and unspecified surgical malabsorption, B12 deficiency. 5. Other forms of systemic lupus. 6. Tension type headache, not retractable. 7. Intermittent asthma without complication. 8. Iron deficiency anemia. 9. Fibromyalgia. 10.Migraine without aura. 11.BMI 30 to 34.9. DISCHARGE DIAGNOSES: 1. Insertion of right subclavian triple-lumen exploratory laparotomy with lysis of extensive adhesions. 2. Small bowel resection, secondary enterotomy to re-establish Jorge-en-Y anatomy. Small bowel strictureplasty and repair of incarcerated incisional hernia and placement of Interceed mesh for limited peripheral vein access, partial small bowel obstruction secondary to inflammatory response at the JJ separate small-bowel stricture, incarcerated incisional hernia and intraabdominal adhesions. Date of surgery 02/14/2018. Surgeon, Leonidas Sam MD. 3. Upper GI endoscopy for nausea associated with nausea. HISTORY: Alison Santillan is a 42-year-old female with persistent nausea and postprandial abdominal pain. After preoperative evaluation and discussion of possible risks and possible complications, she wished to proceed with surgical procedure. HOSPITAL COURSE: Alison had her upper GI endoscopy on 02/13/2018 and her surgical procedure on 02/14/2018. She had no operative complications. On postop day #1, she was able to take a shower. She had persistent itching. She was also started on a step-2 gastric bypass diet without cereal, which she tolerated it well. On postop day #2, she was afebrile. She was given some IV iron gluconate and her bowels were stimulated. On 02/17, she did start having bowel movements. She was advanced to a step 3 gastric bypass diet and on 02/18, she was ready to be discharged to home. PHYSICAL EXAMINATION: GENERAL: Alison Santillan is a 42-year-old female height is 5 feet 2.99 inches. Weight is 190 pounds. VITAL SIGNS: TPR is 96.6, 94, 16, and blood pressure is 134/75. HEENT: Negative. NECK: Supple. HEART: Regular rate and rhythm. LUNGS: Clear. ABDOMEN: Aquacel dressing was removed. Jacey intact. Soft and nontender. EXTREMITIES: Without peripheral edema. DISPOSITION: She reports an area on her left lateral thigh that feels numb. It has not changed from postop day one. She is ambulating. Activity is good. We will continue to observe. Discharge to home. CONDITION: Stable and improving. FOLLOWUP: Followup appointment on 02/26/2018 at [facility] at 10 a.m.. HOME PRESCRIPTIONS: 1. Percocet 5/325 mg, 1 to 2 every 4 hours p.r.n. pain #40. 2. Zofran ODT 4 mg q.4 hours p.r.n. nausea #30. 3. She is to resume her home medication, Proventil inhaler 2 puffs as directed p.r.n. shortness of breath. 4. Biotin 1 tablet daily. 5. Calcium citrate one twice daily. 6. Vitamin B12, 1000 mcg sublingual daily. 7. EpiPen use as directed. 8. Plaquenil 400 mg oral daily. 9. Vitron-C one tablet oral daily. 10.Robaxin 750, 1500 mg oral 3 times a day. 11.Multivitamin b.i.d.. 12.Protonix 40 mg twice daily. 13.MiraLax 17 g oral daily p.r.n. constipation. 14.Senna S, 1 tablet twice daily. 15.Carafate 1 g oral 4 times a day. 16.Vitamin B complex one tablet daily. 17.Hydroxyzine 25 mg, 3 times a day. DISCHARGE DIET: Step-2 gastric bypass diet. Drink 8 to 10 glasses of water a day. ACTIVITY: No lifting greater than 10 pounds for 6 weeks. Walk 6 times daily inside your home. Driving: Do not drive on pain medication, may shower. DISCHARGE INSTRUCTIONS: Notify provider if any fever, increased pain, nausea, or vomiting. Keep site clean and dry. Wear abdominal binder for 6 weeks and then as tolerated. Use incentive spirometer 10 times every hour while awake for one week.
== END 2018-02-18 09:08 | disposition home or self-care (01) | DRG 221 ==
LOC: JP.2SS 12:54
PROVIDERS: ADMIT Surgery; ATTEND Surgery
PROC: 0DJ08ZZ Inspection of Upper Intestinal Tract, Via Natural or Artificial Opening Endoscopic (ICD-10-PCS; 2018-02-13)
PROC: 0DB80ZX Excision of Small Intestine, Open Approach, Diagnostic (ICD-10-PCS; principal; 2018-02-14)
PROC: 0WQF0ZZ Repair Abdominal Wall, Open Approach (ICD-10-PCS; 2018-02-14)
PROC: 3E0M05Z Introduction of Adhesion Barrier into Peritoneal Cavity, Open Approach (ICD-10-PCS; 2018-02-14)
PROC: 0D1A0ZA Bypass Jejunum to Jejunum, Open Approach (ICD-10-PCS; 2018-02-14)
PROC: 0DNW0ZZ Release Peritoneum, Open Approach (ICD-10-PCS; 2018-02-14)
PROC: 05H633Z Insertion of Infusion Device into Left Subclavian Vein, Percutaneous Approach (ICD-10-PCS; 2018-02-14)
DX: K56.51 Intestinal adhesions [bands], with partial obstruction (principal); K52.9 Noninfective gastroenteritis and colitis, unspecified; K43.0 Incisional hernia with obstruction, without gangrene; K56.609 Unspecified intestinal obstruction, unspecified as to partial versus complete obstruction; R79.89 Other specified abnormal findings of blood chemistry; Z98.84 Bariatric surgery status; Z98.0 Intestinal bypass and anastomosis status; K91.2 Postsurgical malabsorption, not elsewhere classified; M32.8 Other forms of systemic lupus erythematosus; G44.209 Tension-type headache, unspecified, not intractable; J45.20 Mild intermittent asthma, uncomplicated; D50.9 Iron deficiency anemia, unspecified; M79.7 Fibromyalgia; G43.009 Migraine without aura, not intractable, without status migrainosus; E66.9 Obesity, unspecified; Z68.34 Body mass index [BMI] 34.0-34.9, adult
CPT/HCPCS: 36415; 71045; 71045-26; 74177; 74177-26; 74240; 74240-26; 80053; 82150; 82728; 83690; 83735; 84100; 85025; 85027; 86677; 94762; A9270-GY; C9113; J0171; J0330; J0694; J1100; J1170; J1200; J1642; J1644; J2001; J2020; J2185; J2250; J2405; J2704; J2710; J2795; J2916; J3010; J3410; J3411; J3420; J3490; J7030; J7042; J7050; J7120; Q9967

== ENCOUNTER 2022-09-04 07:44 | Inpatient (IN) | payer BC ==
[~2022-09-04 07:44] MED LIST changes: +Bupivacaine 0.5% 50 ML MDV ONE; +Lidocaine 1% with EPINEPHrine 1:100,000 50 ML MDV ONE; +Meropenem 500 MG SDV ONE; -Midazolam 1 MG/ML 2 ML SDV ONE; -Propofol 200 MG/20 ML SDV ONE; -fentaNYL 100 MCG/2 ML SDV ONE
[2022-09-04] MEDS ORDERED: Acetaminophen 500 MG Tab PO ONE (07:45)
[2022-09-04] MEDS ORDERED: Scopolamine 1.5 MG Transdermal Patch TRDERM SCH (07:45)
[2022-09-04] MEDS ORDERED: Albuterol/Ipratropium 3.0-0.5 MG/3 ML Neb Soln NEB ONE (08:45)
[2022-09-04] MEDS: Dextrose 5%-Lactated Ringers 1,000 ML IV SCH ×2 (09:00→15:48)
[2022-09-04] MEDS ORDERED: cefOXitin 2 GM in Sodium Chloride 0.9% 50 ML IV ONE (09:00)
[2022-09-04] MEDS ORDERED: fentaNYL 250 MCG/5 ML SDV ONE ×3 (09:01→12:38)
[2022-09-04] MEDS ORDERED: Dexamethasone 4 MG/ML SDV ONE (09:01)
[2022-09-04] MEDS ORDERED: Propofol 200 MG/20 ML SDV ONE (09:01)
[2022-09-04] MEDS ORDERED: Neostigmine Methylsulfate 1 MG/ML 5 ML Syringe ONE (09:01)
[2022-09-04] MEDS ORDERED: Succinylcholine 200 MG/10 ML MDV ONE (09:01)
[2022-09-04] MEDS ORDERED: Glycopyrrolate 0.2 MG/ML 5 ML MDV ONE (09:01)
[2022-09-04] MEDS ORDERED: Rocuronium 50 MG/5 ML Vial ONE ×2 (09:01→11:35)
[2022-09-04] MEDS ORDERED: Ondansetron 4 MG/2 ML SDV ONE (09:01)
[2022-09-04] MEDS ORDERED: diphenhydrAMINE 25 MG Cap PO PRN (09:20)
[2022-09-04] MEDS ORDERED: diphenhydrAMINE 50 MG/ML SDV IVPUSH PRN (09:20)
[2022-09-04] MEDS ORDERED: Ondansetron 4 MG/2 ML SDV IVPUSH PRN (09:20)
[2022-09-04] MEDS ORDERED: Naloxone 0.4 MG/ML SDV IVPUSH PRN (09:20)
[2022-09-04] MEDS: HYDROmorphone/Normal Saline 6 MG/30 ML PCA Vial IV PRN (09:27)
[2022-09-04] MEDS ORDERED: Ropivacaine 50 ML, dexAMETHasone 8 MG, EPINEPHrine 0.4 MG, Sodium Chloride 0.9% 27.6 ML NERVRT SCH ×4 (09:30)
[2022-09-04] MEDS ORDERED: Ketamine 15 MG in Sodium Chloride 0.9% 19.85 ML IV SCH (09:30)
[2022-09-04] MEDS ORDERED: Ketamine 500 MG/5 ML MDV IV SCH (09:30)
[2022-09-04] MEDS ORDERED: Linezolid 600 MG/300 ML Premix Bag IRR ONE (11:10)
[2022-09-04] MEDS ORDERED: Lactated Ringers 1,000 ML ONE (12:39)
[2022-09-04] MEDS ORDERED: Labetalol 20 MG/4 ML Syringe ONE (13:12)
[2022-09-04] MEDS ORDERED: hydrOXYzine HCL 100 MG/2 ML SDV IM ONE (15:02)
[2022-09-04] MEDS ORDERED: fentaNYL 50 MCG/ML SDV IVPUSH ONE (15:02)
[2022-09-04] MEDS ORDERED: hydrOXYzine HCL 100 MG/2 ML SDV IM PRN (17:00)
[2022-09-04] MEDS ORDERED: Acetaminophen 500 MG Tab PO PRN (17:00)
[2022-09-04] MEDS ORDERED: Albuterol/Ipratropium 3.0-0.5 MG/3 ML Neb Soln INH PRN (17:00)
[2022-09-04] MEDS ORDERED: Labetalol 20 MG/4 ML Syringe IVPUSH PRN (17:00)
[2022-09-04] MEDS: cefOXitin 2 GM in Sodium Chloride 0.9% 50 ML IV SCH ×2 (17:07→22:34)
[2022-09-04] MEDS: MVI, Adult with Vitamin K 10 ML, Thiamine 200 MG, Zinc/Copper/Manganese/Selenium 1 ML i... IV SCH ×4 (17:08)
[2022-09-04] MEDS ORDERED: Pantoprazole 40 MG Vial IVPUSH SCH (18:00)
[2022-09-04] MEDS: Heparin Sodium 5,000 Units/ML Vial SUBCUT SCH (20:28)
[2022-09-04] MEDS: Albuterol/Ipratropium 3.0-0.5 MG/3 ML Neb Soln INH SCH (20:28)
[2022-09-04] MEDS: diphenhydrAMINE 50 MG/ML SDV IVPUSH PRN (21:42)
[2022-09-04] MEDS: Acetaminophen 500 MG Tab PO SCH (22:38)
[2022-09-05] MEDS: Dextrose 5%-Lactated Ringers 1,000 ML IV SCH ×2 (00:27→06:46)
[2022-09-05] MEDS: Ondansetron 4 MG/2 ML SDV IVPUSH PRN ×2 (00:40→05:50)
[2022-09-05] MEDS ORDERED: Iopamidol 510 MG/ML 50 ML SDV PO SCH (03:00)
[2022-09-05] MEDS ORDERED: Iopamidol 612 MG/ML 50 ML SDV PO ONE (03:20)
[2022-09-05] MEDS: Acetaminophen 500 MG Tab PO SCH ×3 (05:06→21:30)
[2022-09-05] MEDS: cefOXitin 2 GM in Sodium Chloride 0.9% 50 ML IV SCH ×4 (05:06→23:06)
[2022-09-05 05:20] LABS: ESTIMATED GFR 91 mL/min (>60)
[2022-09-05] MEDS: Albuterol/Ipratropium 3.0-0.5 MG/3 ML Neb Soln INH SCH ×4 (07:32→20:45)
[2022-09-05] MEDS ORDERED: Ondansetron 4 MG Tab.DIS PO PRN (07:47)
[2022-09-05] MEDS: hydrOXYzine HCl 25 MG Tab PO SCH ×5 (08:56→23:06)
[2022-09-05] MEDS: SCOPOLAMINE PATCH CHECK TOP SCH (08:56)
[2022-09-05] MEDS: Heparin Sodium 5,000 Units/ML Vial SUBCUT SCH ×2 (08:56→20:45)
[2022-09-05] MEDS: HYDROmorphone/Normal Saline 6 MG/30 ML PCA Vial IV PRN (09:23)
[2022-09-05] MEDS: Sodium Ferric Gluconate Cmplex 250 MG in Sodium Chloride 0.9% 100 ML IV SCH (12:32)
[2022-09-05] MEDS ORDERED: Pantoprazole 40 MG Delayed-Release Granules 1 Packet PO SCH (16:30)
[2022-09-05] MEDS: MVI, Adult with Vitamin K 10 ML, Thiamine 200 MG, Zinc/Copper/Manganese/Selenium 1 ML i... IV SCH ×4 (16:55)
[2022-09-06] MEDS: HYDROmorphone/Normal Saline 6 MG/30 ML PCA Vial IV PRN ×2 (02:44→17:20)
[2022-09-06] MEDS: Dextrose 5%-Lactated Ringers 1,000 ML IV SCH ×2 (04:00→18:49)
[2022-09-06] MEDS: hydrOXYzine HCl 25 MG Tab PO SCH ×6 (04:00→23:31)
[2022-09-06] MEDS: Acetaminophen 500 MG Tab PO SCH ×4 (04:03→21:42)
[2022-09-06] MEDS: cefOXitin 2 GM in Sodium Chloride 0.9% 50 ML IV SCH ×2 (04:04→13:00)
[2022-09-06] MEDS: Albuterol/Ipratropium 3.0-0.5 MG/3 ML Neb Soln INH SCH ×4 (07:05→21:42)
[2022-09-06] MEDS: Heparin Sodium 5,000 Units/ML Vial SUBCUT SCH ×2 (07:14→19:44)
[2022-09-06] MEDS: SCOPOLAMINE PATCH CHECK TOP SCH (08:20)
[2022-09-06] MEDS: Sodium Ferric Gluconate Cmplex 250 MG in Sodium Chloride 0.9% 100 ML IV SCH (08:59)
[2022-09-06] MEDS: Bisacodyl 5 MG Tab PO SCH ×2 (09:00→21:42)
[2022-09-06] MEDS ORDERED: Cyanocobalamin (Vitamin B12) 1,000 MCG/ML SDV IM ONE (09:00)
[2022-09-06] MEDS: Cyclobenzaprine 10 MG Tab PO PRN (11:50)
[2022-09-06] MEDS: diphenhydrAMINE 50 MG/ML SDV IVPUSH PRN (14:41)
[2022-09-06] MEDS ORDERED: Pantoprazole 40 MG Tab.CR PO SCH (16:30)
[2022-09-07] MEDS: hydrOXYzine HCl 25 MG Tab PO SCH ×2 (04:16→07:40)
[2022-09-07] MEDS: Acetaminophen 500 MG Tab PO SCH (05:06)
[2022-09-07] MEDS ORDERED: HYDROmorphone 2 MG Tab PO PRN (05:42)
[2022-09-07] MEDS ORDERED: Magnesium Hydroxide 400 MG/5 ML Susp 30 ML Cup PO PRN ×2 (07:04→08:30)
[2022-09-07] MEDS: Heparin Sodium 5,000 Units/ML Vial SUBCUT SCH (07:40)
[2022-09-07 07:49] VITALS: BP 135/67; PULSE 76
[2022-09-07] MEDS: Bisacodyl 5 MG Tab PO SCH (08:00)
[2022-09-07] MEDS: Albuterol/Ipratropium 3.0-0.5 MG/3 ML Neb Soln INH SCH (10:02)
[2022-09-07] MEDS: Cyclobenzaprine 10 MG Tab PO PRN (10:02)
== END 2022-09-07 10:45 | disposition home or self-care (01) | DRG 220 ==
LOC: JP.SDS 07:44 → JP.2SS 15:54
PROVIDERS: ADMIT Surgery; ATTEND Surgery
PROC: 0DB80ZZ Excision of Small Intestine, Open Approach (ICD-10-PCS; principal; 2022-09-04)
PROC: 0DB80ZZ Excision of Small Intestine, Open Approach (ICD-10-PCS; 2022-09-04)
PROC: 0FB20ZZ Excision of Left Lobe Liver, Open Approach (ICD-10-PCS; 2022-09-04)
PROC: 0BQT0ZZ Repair Diaphragm, Open Approach (ICD-10-PCS; 2022-09-04)
PROC: 3E0M05Z Introduction of Adhesion Barrier into Peritoneal Cavity, Open Approach (ICD-10-PCS; 2022-09-04)
PROC: 0WQF0ZZ Repair Abdominal Wall, Open Approach (ICD-10-PCS; 2022-09-04)
PROC: 0D150ZA Bypass Esophagus to Jejunum, Open Approach (ICD-10-PCS; 2022-09-04)
PROC: 0DT60ZZ Resection of Stomach, Open Approach (ICD-10-PCS; 2022-09-04)
PROC: 0DB50ZZ Excision of Esophagus, Open Approach (ICD-10-PCS; 2022-09-04)
PROC: 0DBU0ZZ Excision of Omentum, Open Approach (ICD-10-PCS; 2022-09-04)
PROC: 0WBF0ZZ Excision of Abdominal Wall, Open Approach (ICD-10-PCS; 2022-09-04)
DX: K91.89 Other postprocedural complications and disorders of digestive system (principal); K29.70 Gastritis, unspecified, without bleeding; K43.0 Incisional hernia with obstruction, without gangrene; K66.0 Peritoneal adhesions (postprocedural) (postinfection); K44.9 Diaphragmatic hernia without obstruction or gangrene; D64.9 Anemia, unspecified; K21.9 Gastro-esophageal reflux disease without esophagitis; F32.A Depression, unspecified; Z79.899 Other long term (current) drug therapy
CPT/HCPCS: 36415; 74240; 74240-26; 80053; 82947; 83735; 83880; 84100; 85025; 86850; 86900; 86901; 88302; 88305; 88307; 93005; 93010; 94640; A9270-GY; C9113; J0171; J0330; J0694; J1100; J1170; J1200; J1644; J2020; J2185; J2405; J2704; J2710; J2795; J2916; J3010; J3410; J3411; J3490; J7120; J7121; J7620; Q9967

== ENCOUNTER 2022-09-15 11:05 | Day surgery (SDC) | payer BC ==
[2022-09-15] MEDS ORDERED: Cyanocobalamin (Vitamin B12) 1,000 MCG/ML SDV IM ONE (11:30)
[2022-09-15] MEDS ORDERED: Lactated Ringers 1,000 ML IV ONE (11:30)
[2022-09-15] MEDS ORDERED: Glycopyrrolate 0.2 MG/ML 2 ML SDV IVPUSH ONE (12:00)
[2022-09-15] MEDS ORDERED: MVI, Adult with Vitamin K 10 ML, Thiamine 200 MG, Zinc/Copper/Manganese/Selenium 1 ML i... IV ONE ×4 (12:30)
[2022-09-15] MEDS ORDERED: Ondansetron 4 MG/2 ML SDV IVPUSH ONE (13:45)
[2022-09-15] MEDS ORDERED: fentaNYL 100 MCG/2 ML SDV ONE (14:12)
[2022-09-15] MEDS ORDERED: Propofol 200 MG/20 ML SDV ONE (14:12)
[2022-09-15 15:23] VITALS: BP 132/83; PULSE 74
== END 2022-09-15 15:45 | disposition home or self-care (01) ==
LOC: JP.SDS 11:05
PROVIDERS: ATTEND Surgery
DX: R13.10 Dysphagia, unspecified (principal); E66.9 Obesity, unspecified; Z68.37 Body mass index [BMI] 37.0-37.9, adult; Z79.899 Other long term (current) drug therapy
CPT/HCPCS: J2405; J2704; J3010; J3411; J3420; J3490; J7120

== ENCOUNTER 2022-09-16 20:14 | Emergency (ER) | payer BC ==
[2022-09-16 20:36] VITALS: BP 149/85; PULSE 90
[2022-09-16] MEDS ORDERED: Sodium Chloride 0.9% 10 ML Syringe FLUSH PRN (20:56)
[2022-09-16] MEDS ORDERED: Iopamidol 755 Mg/ML 100 ML Bottle IV ONE (21:13)
[2022-09-16] MEDS ORDERED: Sodium Chloride 0.9% 10 ML Syringe FLUSH ONE (21:13)
[2022-09-16] MEDS ORDERED: Sodium Chloride 0.9% 75 ML IV ONE (21:13)
[2022-09-16 21:41] LABS: ESTIMATED GFR 107 mL/min (>60)
[2022-09-16 22:57] LABS: CORONAVIRUS COVID-19 NAA NEGATIVE (NEGATIVE)
[2022-09-16] MEDS ORDERED: HYDROmorphone 0.5 MG/0.5 ML Syringe IVPUSH ONE (23:53)
== END 2022-09-17 00:32 | disposition home or self-care (01) ==
LOC: JP.ED 20:14
DX: R06.02 Shortness of breath (principal); I10 Essential (primary) hypertension; J45.909 Unspecified asthma, uncomplicated; E66.9 Obesity, unspecified; Z68.37 Body mass index [BMI] 37.0-37.9, adult; Z88.8 Allergy status to other drugs, medicaments and biological substances; Z88.0 Allergy status to penicillin; Z88.1 Allergy status to other antibiotic agents; Z88.6 Allergy status to analgesic agent; Z91.048 Other nonmedicinal substance allergy status; Z79.899 Other long term (current) drug therapy; Z20.822 Contact with and (suspected) exposure to COVID-19
CPT/HCPCS: 0241U; 36415; 71275; 74176; 80053; 83605; 83690; 85025; 96374; 99285; J1170; J3490; Q9967

== ENCOUNTER 2022-10-27 09:35 | Day surgery (SDC) | payer BC ==
[2022-10-27] MEDS ORDERED: fentaNYL 50 MCG/ML SDV ONE (10:18)
[2022-10-27] MEDS ORDERED: Propofol 200 MG/20 ML SDV ONE (10:18)
[2022-10-27] MEDS ORDERED: Midazolam 1 MG/ML 2 ML SDV ONE (10:18)
[2022-10-27] MEDS ORDERED: Cyanocobalamin (Vitamin B12) 1,000 MCG/ML SDV IM ONE (10:30)
[2022-10-27] MEDS ORDERED: Lactated Ringers 1,000 ML IV SCH (10:30)
[2022-10-27] MEDS ORDERED: Glycopyrrolate 0.2 MG/ML 2 ML SDV IVPUSH ONE (10:30)
[2022-10-27] MEDS ORDERED: Ondansetron 4 MG/2 ML SDV ONE (11:18)
[2022-10-27] MEDS ORDERED: Dexamethasone 4 MG/ML SDV ONE (11:24)
[2022-10-27] MEDS ORDERED: MVI, Adult with Vitamin K 10 ML, Thiamine 200 MG, Chromium/Copper/Mang/Selen/Zn 1 ML in... IV ONE ×4 (11:30)
[2022-10-27] MEDS ORDERED: Pantoprazole 40 MG Vial IVPUSH ONE (11:35)
[2022-10-27] MEDS ORDERED: Scopolamine 1.5 MG Transdermal Patch TOP ONE (11:35)
[2022-10-27 14:40] VITALS: BP 140/64; PULSE 63
== END 2022-10-27 15:10 | disposition home or self-care (01) ==
LOC: JP.SDS 09:35
PROVIDERS: ATTEND Surgery
DX: K95.89 Other complications of other bariatric procedure (principal); K31.89 Other diseases of stomach and duodenum; K25.9 Gastric ulcer, unspecified as acute or chronic, without hemorrhage or perforation; R13.10 Dysphagia, unspecified; J45.909 Unspecified asthma, uncomplicated; K90.9 Intestinal malabsorption, unspecified; Z98.84 Bariatric surgery status; Z98.0 Intestinal bypass and anastomosis status; Z88.8 Allergy status to other drugs, medicaments and biological substances; Z88.1 Allergy status to other antibiotic agents; Z91.040 Latex allergy status; Z91.048 Other nonmedicinal substance allergy status
CPT/HCPCS: 43245; A9270; C1726; C9113; J1100; J2250; J2405; J2704; J3010; J3411; J3420; J3490; J7120

== ENCOUNTER 2022-11-20 06:53 | Day surgery (SDC) | payer BC ==
[2022-11-20] MEDS ORDERED: Propofol 200 MG/20 ML SDV ONE (07:14)
[2022-11-20] MEDS ORDERED: Midazolam 1 MG/ML 2 ML SDV ONE (07:14)
[2022-11-20] MEDS ORDERED: fentaNYL 50 MCG/ML SDV ONE (07:14)
[2022-11-20] MEDS ORDERED: Lactated Ringers 1,000 ML IV SCH (07:15)
[2022-11-20] MEDS ORDERED: Cyanocobalamin (Vitamin B12) 1,000 MCG/ML SDV IM ONE (07:30)
[2022-11-20] MEDS ORDERED: MVI, Adult with Vitamin K 10 ML, Thiamine 200 MG, Zinc/Copper/Manganese/Selenium 1 ML i... IV ONE ×4 (07:45)
[2022-11-20] MEDS ORDERED: Ondansetron 4 MG/2 ML SDV ONE (07:51)
[2022-11-20] MEDS ORDERED: Glycopyrrolate 0.2 MG/ML 2 ML SDV IVPUSH ONE (08:00)
[2022-11-20] MEDS ORDERED: Dexamethasone 4 MG/ML SDV ONE (08:30)
[2022-11-20] MEDS ORDERED: Lidocaine 2% 60 ML, Alum Hydrox/Mag Hydrox/Simeth 360 ML PO PRN ×2 (08:35)
[2022-11-20 10:05] VITALS: BP 127/74; PULSE 67
== END 2022-11-20 10:40 | disposition home or self-care (01) ==
LOC: JP.SDS 06:53
PROVIDERS: ATTEND Surgery
DX: K94.23 Gastrostomy malfunction (principal); R13.10 Dysphagia, unspecified; E11.9 Type 2 diabetes mellitus without complications; K90.9 Intestinal malabsorption, unspecified; Z88.0 Allergy status to penicillin; Z79.899 Other long term (current) drug therapy; Z91.040 Latex allergy status; Z88.1 Allergy status to other antibiotic agents; Z88.8 Allergy status to other drugs, medicaments and biological substances
CPT/HCPCS: 43233; 76000; A9270; C1726; J1100; J2250; J2405; J2704; J3010; J3411; J3420; J3490; J7120

== ENCOUNTER 2023-01-06 12:51 | Inpatient (IN) | payer BC ==
[2023-01-06] MEDS ORDERED: Pantoprazole 40 MG Vial IVPUSH ONE (15:45)
[2023-01-06] MEDS ORDERED: Sodium Chloride 0.9% 1,000 ML IV SCH (15:45)
[2023-01-06 16:25] LABS: BASOPHILS ABSOLUTE AUTO 0.02 K/uL (0.00-0.10); BASOPHILS PERCENT AUTO 0.4 % (0.1-1.3); EOSINOPHILS ABSOLUTE AUTO 0.08 K/uL (0.00-0.40); EOSINOPHILS PERCENT AUTO 1.5 % (0.0-5.4); HEMATOCRIT 35.6 % (34.3-46.0); IMMATURE GRAN ABSOLUTE AUTO 0.01 K/uL (0.00-0.23); IMMATURE GRAN PERCENT AUTO 0.2 % (0.0-0.7); LYMPHOCYTES ABSOLUTE AUTO 1.99 K/uL (0.8-3.3); LYMPHOCYTES PERCENT AUTO 38.1 % (11.4-47.7); MEAN CORPUSCULAR HEMOGLOBIN 29.3 pg (31.6-35.5); MEAN CORPUSCULAR HGB CONC 33.7 g/dL (31.6-35.5); MEAN CORPUSCULAR VOLUME 86.8 fL (81.4-99.0); MONOCYTES ABSOLUTE AUTO 0.28 K/uL (0.20-0.90); MONOCYTES PERCENT AUTO 5.4 % (3.3-12.6); NEUTROPHILS ABSOLUTE AUTO 2.84 K/uL (1.0-7.6); NEUTROPHILS PERCENT AUTO 54.4 % (40.0-78.1); PLATELET COUNT,PLT 165 K/uL (130-375); WHITE BLOOD CELL COUNT,WBC 5.2 K/uL (3.2-11.0)
[2023-01-06 16:46] LABS: A/G RATIO 0.8 (1.2-2.2); ALANINE AMINOTRANSFERASE,ALT 65 U/L (12-78); ALBUMIN 3.1 g/dL (3.4-5.0); ALKALINE PHOSPHATASE 148 U/L (46-116); ASPARTATE AMNIOTRANSFERASE,AST 56 U/L (15-37); BILIRUBIN TOTAL 1.7 mg/dL (0.2-1.0); BLOOD UREA NITROGEN,BUN 15 mg/dL (7-18); CALCIUM 8.8 mg/dL (8.5-10.1); CARBON DIOXIDE,CO2 27 mmol/L (21-32); CHLORIDE,CL 103 mmol/L (100-108); CREATININE 0.8 mg/dL (0.6-1.0); EST CRCL DRUG DOSING (CG) 97.17 mL/min; ESTIMATED GFR 91 mL/min (>60); GLUCOSE RANDOM 86 mg/dL (74-106); POTASSIUM,K 3.4 mmol/L (3.6-5.2); PROTEIN TOTAL,TP 6.8 g/dL (6.4-8.2); SODIUM,NA 141 mmol/L (140-148)
[2023-01-06 16:47] LABS: ANION GAP 14.4 mmol/L (5.0-14.0)
[2023-01-06] MEDS ORDERED: Ondansetron 4 MG/2 ML SDV IVPUSH ONE (18:07)
[2023-01-06] MEDS ORDERED: Morphine 2 MG/ML SYRINGE IVPUSH ONE (18:07)
[2023-01-06] MEDS ORDERED: Potassium Chloride 10 MEQ in Premix Bag 1 BAG IV ONE (19:07)
[2023-01-06] MEDS ORDERED: Melatonin 3 MG Tab PO PRN (19:25)
[2023-01-06] MEDS ORDERED: Lactated Ringers 1,000 ML IV SCH (19:25)
[2023-01-06] MEDS ORDERED: Acetaminophen 325 MG Tab PO PRN (19:25)
[2023-01-06] MEDS ORDERED: MVI, Adult with Vitamin K 10 ML, Thiamine 100 MG, Folic Acid 1 MG, Magnesium Sulfate 3 ... IV SCH ×5 (19:25)
[2023-01-06] MEDS ORDERED: Potassium Chloride 10 MEQ in Premix Bag 1 BAG IV SCH (20:00)
[2023-01-06] MEDS ORDERED: Ondansetron 4 MG/2 ML SDV ONE (20:13)
[2023-01-06] MEDS: Ondansetron 4 MG/2 ML SDV IV PRN (20:16)
[2023-01-06] MEDS: HYDROmorphone 1 MG/ML Syringe IVPUSH PRN (21:04)
[2023-01-07] MEDS ORDERED: Ondansetron 4 MG Tab.DIS PO PRN
[2023-01-07] MEDS: Ondansetron 4 MG/2 ML SDV IV PRN ×3 (02:16→20:02)
[2023-01-07] MEDS: HYDROmorphone 1 MG/ML Syringe IVPUSH PRN ×3 (02:16→20:02)
[2023-01-07 04:37] LABS: A/G RATIO 0.8 (1.2-2.2); ALANINE AMINOTRANSFERASE,ALT 63 U/L (12-78); ALBUMIN 2.4 g/dL (3.4-5.0); ALKALINE PHOSPHATASE 121 U/L (46-116); ASPARTATE AMNIOTRANSFERASE,AST 79 U/L (15-37); BILIRUBIN TOTAL 1.4 mg/dL (0.2-1.0); BLOOD UREA NITROGEN,BUN 14 mg/dL (7-18); CARBON DIOXIDE,CO2 27 mmol/L (21-32); CHLORIDE,CL 106 mmol/L (100-108); CREATININE 0.7 mg/dL (0.6-1.0); EST CRCL DRUG DOSING (CG) 78.58 mL/min; ESTIMATED GFR 107 mL/min (>60); GLUCOSE RANDOM 82 mg/dL (74-106); POTASSIUM,K 3.1 mmol/L (3.6-5.2); PROTEIN TOTAL,TP 5.3 g/dL (6.4-8.2); SODIUM,NA 142 mmol/L (140-148)
[2023-01-07 05:00] LABS: ANION GAP 12.1 mmol/L (5.0-14.0)
[2023-01-07 05:02] LABS: BASOPHILS ABSOLUTE AUTO 0.02 K/uL (0.00-0.10); BASOPHILS PERCENT AUTO 0.5 % (0.1-1.3); EOSINOPHILS ABSOLUTE AUTO 0.09 K/uL (0.00-0.40); EOSINOPHILS PERCENT AUTO 2.2 % (0.0-5.4); HEMATOCRIT 28.8 % (34.3-46.0); IMMATURE GRAN ABSOLUTE AUTO 0.01 K/uL (0.00-0.23); IMMATURE GRAN PERCENT AUTO 0.2 % (0.0-0.7); LYMPHOCYTES ABSOLUTE AUTO 1.89 K/uL (0.8-3.3); LYMPHOCYTES PERCENT AUTO 46.4 % (11.4-47.7); MEAN CORPUSCULAR HGB CONC 34.7 g/dL (31.6-35.5); MEAN CORPUSCULAR VOLUME 86.5 fL (81.4-99.0); MONOCYTES ABSOLUTE AUTO 0.29 K/uL (0.20-0.90); MONOCYTES PERCENT AUTO 7.1 % (3.3-12.6); NEUTROPHILS ABSOLUTE AUTO 1.77 K/uL (1.0-7.6); NEUTROPHILS PERCENT AUTO 43.6 % (40.0-78.1); PLATELET COUNT,PLT 118 K/uL (130-375); RED BLOOD CELL COUNT 3.33 M/uL (3.77-5.24); WHITE BLOOD CELL COUNT,WBC 4.1 K/uL (3.2-11.0)
[2023-01-07] MEDS ORDERED: Midazolam 1 MG/ML 2 ML SDV ONE (07:42)
[2023-01-07] MEDS ORDERED: fentaNYL 100 MCG/2 ML SDV ONE (07:42)
[2023-01-07] MEDS ORDERED: Propofol 200 MG/20 ML SDV ONE (07:42)
[2023-01-07] MEDS ORDERED: Dexamethasone 4 MG/ML SDV ONE (07:57)
[2023-01-07] MEDS ORDERED: Sodium Chloride 0.9% 10 ML ONE (08:14)
[2023-01-07] MEDS ORDERED: Lactated Ringers 1,000 ML ONE (08:22)
[2023-01-07] MEDS ORDERED: Dextrose 5%-Lact Ringers w/KCl 1,000 ML IV SCH (09:15)
[2023-01-07] MEDS ORDERED: Scopolamine 1.5 MG Transdermal Patch TOP SCH (10:00)
[2023-01-07] MEDS: Potassium Acetate 20 MEQ, Lidocaine 1% 2 ML in Sodium Chloride 0.9% 100 ML IV SCH ×2 (11:11→14:34)
[2023-01-07] MEDS: Pantoprazole 40 MG Vial IV SCH (16:45)
[2023-01-08 04:50] LABS: BASOPHILS PERCENT AUTO 0.2 % (0.1-1.3); EOSINOPHILS ABSOLUTE AUTO 0.03 K/uL (0.00-0.40); EOSINOPHILS PERCENT AUTO 0.6 % (0.0-5.4); HEMATOCRIT 30.4 % (34.3-46.0); HEMOGLOBIN 10.4 g/dL (11.2-15.5); IMMATURE GRAN PERCENT AUTO 0.2 % (0.0-0.7); LYMPHOCYTES ABSOLUTE AUTO 1.83 K/uL (0.8-3.3); LYMPHOCYTES PERCENT AUTO 38.4 % (11.4-47.7); MEAN CORPUSCULAR HEMOGLOBIN 29.6 pg (31.6-35.5); MEAN CORPUSCULAR HGB CONC 34.2 g/dL (31.6-35.5); MEAN CORPUSCULAR VOLUME 86.6 fL (81.4-99.0); MONOCYTES ABSOLUTE AUTO 0.32 K/uL (0.20-0.90); MONOCYTES PERCENT AUTO 6.7 % (3.3-12.6); NEUTROPHILS ABSOLUTE AUTO 2.57 K/uL (1.0-7.6); NEUTROPHILS PERCENT AUTO 53.9 % (40.0-78.1); PLATELET COUNT,PLT 140 K/uL (130-375); RED BLOOD CELL COUNT 3.51 M/uL (3.77-5.24); WHITE BLOOD CELL COUNT,WBC 4.8 K/uL (3.2-11.0)
[2023-01-08 04:53] LABS: BASOPHILS ABSOLUTE AUTO 0.01 K/uL (0.00-0.10)
[2023-01-08 04:54] LABS: IMMATURE GRAN ABSOLUTE AUTO 0.01 K/uL (0.00-0.23)
[2023-01-08 05:06] LABS: A/G RATIO 0.8 (1.2-2.2); ALANINE AMINOTRANSFERASE,ALT 92 U/L (12-78); ALBUMIN 2.4 g/dL (3.4-5.0); ALKALINE PHOSPHATASE 126 U/L (46-116); ASPARTATE AMNIOTRANSFERASE,AST 98 U/L (15-37); BILIRUBIN TOTAL 1.6 mg/dL (0.2-1.0); BLOOD UREA NITROGEN,BUN 7 mg/dL (7-18); CALCIUM 8.4 mg/dL (8.5-10.1); CARBON DIOXIDE,CO2 27 mmol/L (21-32); CHLORIDE,CL 104 mmol/L (100-108); CREATININE 0.7 mg/dL (0.6-1.0); EST CRCL DRUG DOSING (CG) 78.58 mL/min; ESTIMATED GFR 107 mL/min (>60); GLUCOSE RANDOM 85 mg/dL (74-106); MAGNESIUM 2.1 mg/dL (1.8-2.4); PHOSPHORUS 3.9 mg/dL (2.5-4.9); POTASSIUM,K 4.2 mmol/L (3.6-5.2); PROTEIN TOTAL,TP 5.4 g/dL (6.4-8.2); SODIUM,NA 139 mmol/L (140-148)
[2023-01-08 05:16] LABS: ANION GAP 12.2 mmol/L (5.0-14.0)
[2023-01-08] MEDS ORDERED: HYDROmorphone 0.5 MG/0.5 ML Syringe IVPUSH PRN (07:33)
[2023-01-08] MEDS ORDERED: fentaNYL 250 MCG/5 ML SDV ONE ×2 (08:27→10:42)
[2023-01-08] MEDS ORDERED: Glycopyrrolate 0.2 MG/ML 5 ML MDV ONE (08:27)
[2023-01-08] MEDS ORDERED: Propofol 200 MG/20 ML SDV ONE (08:27)
[2023-01-08] MEDS ORDERED: Ondansetron 4 MG/2 ML SDV ONE (08:27)
[2023-01-08] MEDS ORDERED: Succinylcholine 200 MG/10 ML MDV ONE (08:27)
[2023-01-08] MEDS ORDERED: Rocuronium 50 MG/5 ML Vial ONE (08:27)
[2023-01-08] MEDS ORDERED: Neostigmine Methylsulfate 1 MG/ML 5 ML Syringe ONE (08:27)
[2023-01-08] MEDS ORDERED: Dexamethasone 4 MG/ML SDV ONE (08:27)
[2023-01-08] MEDS ORDERED: Meropenem 500 MG SDV ONE (08:34)
[2023-01-08] MEDS ORDERED: Bupivacaine 0.5%/EPINEPHrine 1:200,000 50 ML MDV ONE (08:34)
[2023-01-08] MEDS: Ondansetron 4 MG/2 ML SDV IV PRN (08:35)
[2023-01-08] MEDS ORDERED: SCOPOLAMINE PATCH CHECK TOP SCH (09:00)
[2023-01-08] MEDS ORDERED: Lactated Ringers 1,000 ML ONE ×2 (10:28)
[2023-01-08] MEDS ORDERED: Ketamine 500 MG/5 ML MDV IV SCH (10:45)
[2023-01-08] MEDS ORDERED: cefOXitin 2 GM in Sodium Chloride 0.9% 50 ML IV ONE (10:45)
[2023-01-08] MEDS ORDERED: Ketamine 15 MG in Sodium Chloride 0.9% 19.85 ML IV SCH (10:45)
[2023-01-08] MEDS ORDERED: Linezolid 600 MG/300 ML Premix Bag IRR ONE (12:10)
[2023-01-08] MEDS ORDERED: Lidocaine 1% with EPINEPHrine 1:100,000 50 ML MDV ONE (12:10)
[2023-01-08] MEDS ORDERED: Ondansetron 4 MG/2 ML SDV IVPUSH PRN (12:38)
[2023-01-08] MEDS ORDERED: diphenhydrAMINE 50 MG/ML SDV IVPUSH PRN (12:38)
[2023-01-08] MEDS ORDERED: Naloxone 0.4 MG/ML SDV IVPUSH PRN (12:38)
[2023-01-08] MEDS ORDERED: diphenhydrAMINE 25 MG Cap PO PRN (12:38)
[2023-01-08] MEDS: HYDROmorphone/Normal Saline 6 MG/30 ML PCA Vial IV PRN ×2 (12:44→23:41)
[2023-01-08] MEDS ORDERED: Labetalol 20 MG/4 ML Syringe IVPUSH PRN (14:00)
[2023-01-08] MEDS ORDERED: hydrOXYzine HCl 50 MG/ML SDV IM PRN (14:00)
[2023-01-08] MEDS ORDERED: Acetaminophen 500 MG Tab PO PRN (14:00)
[2023-01-08] MEDS ORDERED: Naloxone 0.4 MG/ML SDV IV PRN (14:00)
[2023-01-08] MEDS: cefOXitin 2 GM in Sodium Chloride 0.9% 50 ML IV SCH ×2 (15:38→21:56)
[2023-01-08] MEDS: Acetaminophen 500 MG Tab PO SCH (15:42)
[2023-01-08] MEDS: Pantoprazole 40 MG Vial IV SCH (15:42)
[2023-01-08] MEDS ORDERED: MVI, Adult with Vitamin K 10 ML, Thiamine 200 MG, Zinc/Copper/Manganese/Selenium 1 ML i... IV SCH ×4 (16:00)
[2023-01-08] MEDS: Heparin Sodium 5,000 Units/ML Vial SUBCUT SCH (20:56)
[2023-01-08] MEDS: Dextrose 5%-Lactated Ringers 1,000 ML IV SCH (21:55)
[2023-01-08] MEDS: Ondansetron 4 MG/2 ML SDV IVPUSH PRN (22:05)
[2023-01-09] MEDS: Acetaminophen 500 MG Tab PO SCH ×3 (00:28→15:45)
[2023-01-09] MEDS: Ondansetron 4 MG/2 ML SDV IVPUSH PRN ×3 (02:10→15:42)
[2023-01-09] MEDS ORDERED: Iopamidol 612 MG/ML 30 ML SDV PO STA (02:12)
[2023-01-09] MEDS: cefOXitin 2 GM in Sodium Chloride 0.9% 50 ML IV SCH ×4 (03:17→21:19)
[2023-01-09] MEDS: Dextrose 5%-Lactated Ringers 1,000 ML IV SCH ×2 (04:48→12:40)
[2023-01-09] MEDS: Heparin Sodium 5,000 Units/ML Vial SUBCUT SCH ×2 (07:27→19:37)
[2023-01-09] MEDS: Celecoxib 200 MG Cap PO SCH ×2 (08:19→21:19)
[2023-01-09] MEDS: Pantoprazole 40 MG Tab.CR PO SCH (15:46)
[2023-01-09] MEDS ORDERED: MVI, Adult with Vitamin K 10 ML, Thiamine 200 MG, Zinc/Copper/Manganese/Selenium 1 ML i... IV SCH ×4 (16:00)
[2023-01-09] MEDS: diphenhydrAMINE 50 MG/ML SDV IVPUSH PRN (23:21)
[2023-01-10] MEDS: Acetaminophen 500 MG Tab PO SCH ×4 (00:28→23:54)
[2023-01-10] MEDS: Dextrose 5%-Lactated Ringers 1,000 ML IV SCH ×3 (03:07→23:29)
[2023-01-10] MEDS: cefOXitin 2 GM in Sodium Chloride 0.9% 50 ML IV SCH ×2 (03:08→10:12)
[2023-01-10] MEDS: HYDROmorphone/Normal Saline 6 MG/30 ML PCA Vial IV PRN (03:30)
[2023-01-10] MEDS ORDERED: hydrOXYzine HCl 25 MG Tab PO PRN (07:33)
[2023-01-10] MEDS: HYDROmorphone 2 MG Tab PO PRN ×3 (07:50→20:05)
[2023-01-10] MEDS: Heparin Sodium 5,000 Units/ML Vial SUBCUT SCH ×2 (07:51→20:03)
[2023-01-10] MEDS: Docusate Sodium 100 MG Cap PO SCH ×3 (08:23→20:44)
[2023-01-10] MEDS: Bisacodyl 5 MG Tab PO SCH ×2 (08:23→20:03)
[2023-01-10] MEDS: Celecoxib 200 MG Cap PO SCH ×2 (08:25→20:03)
[2023-01-10] MEDS ORDERED: Cyanocobalamin (Vitamin B12) 1,000 MCG/ML SDV IM ONE (09:00)
[2023-01-10] MEDS: diphenhydrAMINE 50 MG/ML SDV IVPUSH PRN ×2 (10:17→20:44)
[2023-01-10] MEDS: Ondansetron 4 MG/2 ML SDV IVPUSH PRN (14:56)
[2023-01-10] MEDS: Pantoprazole 40 MG Tab.CR PO SCH (15:34)
[2023-01-11] MEDS: HYDROmorphone 2 MG Tab PO PRN ×4 (02:37→20:02)
[2023-01-11] MEDS: Heparin Sodium 5,000 Units/ML Vial SUBCUT SCH ×2 (07:00→19:58)
[2023-01-11] MEDS ORDERED: fentaNYL 50 MCG/ML SDV ONE (07:40)
[2023-01-11] MEDS ORDERED: Midazolam 1 MG/ML 2 ML SDV ONE (07:40)
[2023-01-11] MEDS ORDERED: Propofol 200 MG/20 ML SDV ONE (07:40)
[2023-01-11] MEDS: Acetaminophen 500 MG Tab PO SCH ×3 (08:21→23:46)
[2023-01-11] MEDS ORDERED: Lactated Ringers 1,000 ML ONE (08:33)
[2023-01-11] MEDS: Docusate Sodium 100 MG Cap PO SCH ×2 (09:18→19:59)
[2023-01-11] MEDS: Celecoxib 200 MG Cap PO SCH ×2 (09:18→19:59)
[2023-01-11] MEDS: Bisacodyl 5 MG Tab PO SCH ×2 (09:18→19:59)
[2023-01-11] MEDS: Dextrose 5%-Lactated Ringers 1,000 ML IV SCH (11:27)
[2023-01-11] MEDS: Ondansetron 4 MG/2 ML SDV IVPUSH PRN ×2 (14:36→20:02)
[2023-01-11] MEDS: Pantoprazole 40 MG Tab.CR PO SCH (16:02)
[2023-01-11] MEDS: Cyclobenzaprine 10 MG Tab PO PRN (22:44)
[2023-01-12] MEDS: Dextrose 5%-Lactated Ringers 1,000 ML IV SCH ×2 (08:13→20:20)
[2023-01-12] MEDS: Heparin Sodium 5,000 Units/ML Vial SUBCUT SCH (08:16)
[2023-01-12] MEDS: Ondansetron 4 MG/2 ML SDV IVPUSH PRN ×2 (08:25→15:17)
[2023-01-12] MEDS: HYDROmorphone 2 MG Tab PO PRN ×3 (08:25→19:32)
[2023-01-12] MEDS: Acetaminophen 500 MG Tab PO SCH ×2 (08:28→15:16)
[2023-01-12] MEDS: Celecoxib 200 MG Cap PO SCH ×2 (08:28→20:21)
[2023-01-12] MEDS: Docusate Sodium 100 MG Cap PO SCH ×2 (08:28→20:21)
[2023-01-12] MEDS: Bisacodyl 5 MG Tab PO SCH ×2 (08:29→20:21)
[2023-01-12] MEDS: Pantoprazole 40 MG Tab.CR PO SCH (16:17)
[2023-01-12] MEDS: Cyclobenzaprine 10 MG Tab PO PRN (19:31)
[2023-01-13] MEDS: Acetaminophen 500 MG Tab PO SCH ×4 (03:20→23:42)
[2023-01-13] MEDS: HYDROmorphone 2 MG Tab PO PRN (04:03)
[2023-01-13] MEDS ORDERED: Bupivacaine 0.5% 50 ML MDV ONE (06:53)
[2023-01-13] MEDS ORDERED: Lidocaine 1% with EPINEPHrine 1:100,000 50 ML MDV ONE (06:53)
[2023-01-13] MEDS ORDERED: Meropenem 500 MG SDV ONE (06:56)
[2023-01-13] MEDS ORDERED: Glycopyrrolate 0.2 MG/ML 5 ML MDV ONE (07:03)
[2023-01-13] MEDS ORDERED: Dexamethasone 4 MG/ML SDV ONE (07:03)
[2023-01-13] MEDS ORDERED: Rocuronium 50 MG/5 ML Vial ONE (07:03)
[2023-01-13] MEDS: Dextrose 5%-Lactated Ringers 1,000 ML IV SCH ×3 (07:03→11:41)
[2023-01-13] MEDS ORDERED: Neostigmine Methylsulfate 1 MG/ML 5 ML Syringe ONE (07:03)
[2023-01-13] MEDS ORDERED: Succinylcholine 200 MG/10 ML MDV ONE (07:03)
[2023-01-13] MEDS ORDERED: Ondansetron 4 MG/2 ML SDV ONE (07:03)
[2023-01-13] MEDS ORDERED: Propofol 200 MG/20 ML SDV ONE (07:03)
[2023-01-13] MEDS ORDERED: fentaNYL 250 MCG/5 ML SDV ONE ×2 (07:05→08:28)
[2023-01-13] MEDS ORDERED: Ketamine 15 MG in Sodium Chloride 0.9% 19.85 ML IV SCH (07:30)
[2023-01-13] MEDS ORDERED: Meropenem 500 MG in Sodium Chloride 0.9% 50 ML IV ONE (07:30)
[2023-01-13] MEDS ORDERED: Ketamine 500 MG/5 ML MDV IV SCH (07:30)
[2023-01-13] MEDS ORDERED: Labetalol 20 MG/4 ML Syringe ONE (08:48)
[2023-01-13] MEDS ORDERED: Linezolid 600 MG/300 ML Premix Bag IRR ONE (09:02)
[2023-01-13] MEDS ORDERED: Naloxone 0.4 MG/ML SDV ONE (09:51)
[2023-01-13] MEDS ORDERED: Sugammadex Sodium 200 MG/2 ML VIAL ONE (09:57)
[2023-01-13] MEDS ORDERED: droPERidol 5 MG/2 ML SDV ONE (09:59)
[2023-01-13] MEDS: Docusate Sodium 100 MG Cap PO SCH (10:55)
[2023-01-13] MEDS: Bisacodyl 5 MG Tab PO SCH (10:55)
[2023-01-13] MEDS: Celecoxib 200 MG Cap PO SCH ×2 (10:55→20:03)
[2023-01-13] MEDS: HYDROmorphone/Normal Saline 6 MG/30 ML PCA Vial IV PRN (11:38)
[2023-01-13] MEDS ORDERED: Naloxone 0.4 MG/ML SDV IV PRN (12:00)
[2023-01-13] MEDS ORDERED: Metoclopramide 10 MG/2 ML SDV IV PRN (12:15)
[2023-01-13] MEDS ORDERED: Scopolamine 1.5 MG Transdermal Patch TOP SCH (12:30)
[2023-01-13] MEDS ORDERED: SCOPOLAMINE PATCH CHECK TOP SCH (12:30)
[2023-01-13] MEDS: Meropenem 500 MG in Sodium Chloride 0.9% 50 ML IV SCH ×2 (14:14→19:34)
[2023-01-13] MEDS: 1: AA 4.25%/Calcium/D10W/Lytes 1,000 ML with MVI, Adult with Vitamin K 10 ML, Zinc/Coppe IV SCH ×6 (14:20→23:47)
[2023-01-13] MEDS: Pantoprazole 40 MG Vial IVPUSH SCH (16:44)
[2023-01-13] MEDS: Heparin Sodium 5,000 Units/ML Vial SUBCUT SCH (18:22)
[2023-01-13] MEDS: Cyclobenzaprine 10 MG Tab PO PRN (21:40)
[2023-01-13] MEDS: Linezolid 600 MG in Premix Bag 1 BAG IV SCH (23:34)
[2023-01-13] MEDS: Ondansetron 4 MG/2 ML SDV IVPUSH PRN (23:42)
[2023-01-14] MEDS: Meropenem 500 MG in Sodium Chloride 0.9% 50 ML IV SCH ×4 (02:26→19:59)
[2023-01-14] MEDS: Dextrose 5%-Lactated Ringers 1,000 ML IV SCH (02:27)
[2023-01-14] MEDS: Heparin Sodium 5,000 Units/ML Vial SUBCUT SCH ×2 (05:03→18:00)
[2023-01-14 05:18] LABS: BASOPHILS PERCENT AUTO 0.1 % (0.1-1.3); EOSINOPHILS PERCENT AUTO 0.1 % (0.0-5.4); HEMATOCRIT 27.9 % (34.3-46.0); HEMOGLOBIN 9.4 g/dL (11.2-15.5); IMMATURE GRAN ABSOLUTE AUTO 0.03 K/uL (0.00-0.23); IMMATURE GRAN PERCENT AUTO 0.4 % (0.0-0.7); LYMPHOCYTES ABSOLUTE AUTO 0.93 K/uL (0.8-3.3); LYMPHOCYTES PERCENT AUTO 12.2 % (11.4-47.7); MEAN CORPUSCULAR HEMOGLOBIN 29.7 pg (31.6-35.5); MEAN CORPUSCULAR HGB CONC 33.7 g/dL (31.6-35.5); MEAN CORPUSCULAR VOLUME 88.3 fL (81.4-99.0); MONOCYTES ABSOLUTE AUTO 0.67 K/uL (0.20-0.90); MONOCYTES PERCENT AUTO 8.8 % (3.3-12.6); NEUTROPHILS ABSOLUTE AUTO 5.96 K/uL (1.0-7.6); NEUTROPHILS PERCENT AUTO 78.4 % (40.0-78.1); PLATELET COUNT,PLT 182 K/uL (130-375); RED BLOOD CELL COUNT 3.16 M/uL (3.77-5.24); WHITE BLOOD CELL COUNT,WBC 7.6 K/uL (3.2-11.0)
[2023-01-14 05:27] LABS: BASOPHILS ABSOLUTE AUTO 0.01 K/uL (0.00-0.10); EOSINOPHILS ABSOLUTE AUTO 0.01 K/uL (0.00-0.40)
[2023-01-14] MEDS ORDERED: Iopamidol 510 MG/ML 50 ML SDV PO ONE (05:39)
[2023-01-14 05:45] LABS: A/G RATIO 0.5 (1.2-2.2); ALANINE AMINOTRANSFERASE,ALT 71 U/L (12-78); ALBUMIN 1.8 g/dL (3.4-5.0); ALKALINE PHOSPHATASE 132 U/L (46-116); ANION GAP 7.2 mmol/L (5.0-14.0); ASPARTATE AMNIOTRANSFERASE,AST 46 U/L (15-37); BILIRUBIN TOTAL 0.5 mg/dL (0.2-1.0); BLOOD UREA NITROGEN,BUN 6 mg/dL (7-18); CALCIUM 8.1 mg/dL (8.5-10.1); CARBON DIOXIDE,CO2 29 mmol/L (21-32); CHLORIDE,CL 105 mmol/L (100-108); CREATININE 0.7 mg/dL (0.6-1.0); ESTIMATED GFR 107 mL/min (>60); FERRITIN 280 ng/ml (8-388); GLUCOSE RANDOM 121 mg/dL (74-106); MAGNESIUM 1.7 mg/dL (1.8-2.4); PHOSPHORUS 4.5 mg/dL (2.5-4.9); POTASSIUM,K 3.6 mmol/L (3.6-5.2); PRO B-TYPE NATRIUR PEPT,BNPPRO 465 pg/mL (5-125); PROTEIN TOTAL,TP 5.3 g/dL (6.4-8.2); SODIUM,NA 141 mmol/L (140-148)
[2023-01-14] MEDS: HYDROmorphone/Normal Saline 6 MG/30 ML PCA Vial IV PRN ×2 (05:47→22:23)
[2023-01-14] MEDS: Ondansetron 4 MG/2 ML SDV IVPUSH PRN ×3 (05:51→17:57)
[2023-01-14] MEDS: Acetaminophen 500 MG Tab PO SCH ×3 (08:32→23:55)
[2023-01-14] MEDS: Celecoxib 200 MG Cap PO SCH ×2 (08:33→19:59)
[2023-01-14] MEDS: Magnesium Sulfate/Water 2 GM in Premix Bag 1 BAG IV SCH ×3 (10:21→22:01)
[2023-01-14] MEDS: 1: AA 4.25%/Calcium/D10W/Lytes 1,000 ML with MVI, Adult with Vitamin K 10 ML, Zinc/Coppe IV SCH ×6 (11:42→21:23)
[2023-01-14] MEDS: Linezolid 600 MG in Premix Bag 1 BAG IV SCH ×2 (11:54→23:56)
[2023-01-14] MEDS: Pantoprazole 40 MG Vial IVPUSH SCH (15:37)
[2023-01-15] MEDS: Meropenem 500 MG in Sodium Chloride 0.9% 50 ML IV SCH ×4 (01:10→19:24)
[2023-01-15] MEDS: Magnesium Sulfate/Water 2 GM in Premix Bag 1 BAG IV SCH ×4 (04:18→21:37)
[2023-01-15 04:42] LABS: A/G RATIO 0.7 (1.2-2.2); ALANINE AMINOTRANSFERASE,ALT 47 U/L (12-78); ALBUMIN 1.9 g/dL (3.4-5.0); ALKALINE PHOSPHATASE 99 U/L (46-116); ANION GAP 4.2 mmol/L (5.0-14.0); ASPARTATE AMNIOTRANSFERASE,AST 30 U/L (15-37); BILIRUBIN TOTAL 0.5 mg/dL (0.2-1.0); BLOOD UREA NITROGEN,BUN 11 mg/dL (7-18); CALCIUM 7.6 mg/dL (8.5-10.1); CARBON DIOXIDE,CO2 30 mmol/L (21-32); CHLORIDE,CL 107 mmol/L (100-108); CREATININE 0.6 mg/dL (0.6-1.0); EST CRCL DRUG DOSING (CG) 90.88 mL/min; ESTIMATED GFR 111 mL/min (>60); GLUCOSE RANDOM 96 mg/dL (74-106); PHOSPHORUS 4.6 mg/dL (2.5-4.9); POTASSIUM,K 3.9 mmol/L (3.6-5.2); PROTEIN TOTAL,TP 4.6 g/dL (6.4-8.2); SODIUM,NA 141 mmol/L (140-148)
[2023-01-15 04:52] LABS: BASOPHILS ABSOLUTE AUTO 0.02 K/uL (0.00-0.10); BASOPHILS PERCENT AUTO 0.4 % (0.1-1.3); EOSINOPHILS ABSOLUTE AUTO 0.22 K/uL (0.00-0.40); HEMOGLOBIN 7.5 g/dL (11.2-15.5); IMMATURE GRAN ABSOLUTE AUTO 0.02 K/uL (0.00-0.23); IMMATURE GRAN PERCENT AUTO 0.4 % (0.0-0.7); LYMPHOCYTES ABSOLUTE AUTO 1.73 K/uL (0.8-3.3); LYMPHOCYTES PERCENT AUTO 31.6 % (11.4-47.7); MEAN CORPUSCULAR HEMOGLOBIN 29.6 pg (31.6-35.5); MEAN CORPUSCULAR HGB CONC 32.6 g/dL (31.6-35.5); MEAN CORPUSCULAR VOLUME 90.9 fL (81.4-99.0); MONOCYTES ABSOLUTE AUTO 0.49 K/uL (0.20-0.90); MONOCYTES PERCENT AUTO 8.9 % (3.3-12.6); NEUTROPHILS PERCENT AUTO 54.7 % (40.0-78.1); PLATELET COUNT,PLT 147 K/uL (130-375); RED BLOOD CELL COUNT 2.53 M/uL (3.77-5.24); WHITE BLOOD CELL COUNT,WBC 5.5 K/uL (3.2-11.0)
[2023-01-15] MEDS: Heparin Sodium 5,000 Units/ML Vial SUBCUT SCH ×2 (05:31→17:37)
[2023-01-15] MEDS ORDERED: Central Total Parenteral Nutrition Bag SCH (07:15)
[2023-01-15] MEDS: Acetaminophen 500 MG Tab PO SCH ×3 (08:07→23:46)
[2023-01-15] MEDS: Celecoxib 200 MG Cap PO SCH ×2 (08:07→21:36)
[2023-01-15] MEDS: Docusate Sodium 100 MG Cap PO SCH ×2 (08:08→21:33)
[2023-01-15] MEDS ORDERED: 1: AA 4.25%/Calcium/D10W/Lytes 1,000 ML with MVI, Adult with Vitamin K 10 ML, Zinc/Coppe IV SCH ×3 (08:30)
[2023-01-15] MEDS ORDERED: Cyanocobalamin (Vitamin B12) 1,000 MCG/ML SDV IM ONE (09:00)
[2023-01-15] MEDS: Bisacodyl 5 MG Tab PO SCH ×2 (09:23→21:33)
[2023-01-15] MEDS: Dextrose 5%-Lactated Ringers 1,000 ML IV SCH (09:39)
[2023-01-15] MEDS: Linezolid 600 MG in Premix Bag 1 BAG IV SCH ×2 (11:39→23:43)
[2023-01-15] MEDS: oxyCODONE 5 MG Tab PO PRN ×3 (12:54→23:40)
[2023-01-15] MEDS: Pantoprazole 40 MG Delayed-Release Granules 1 Packet PO SCH (15:15)
[2023-01-15] MEDS: Cyclobenzaprine 10 MG Tab PO PRN (21:36)
[2023-01-16] MEDS: Meropenem 500 MG in Sodium Chloride 0.9% 50 ML IV SCH (02:16)
[2023-01-16] MEDS: Magnesium Sulfate/Water 2 GM in Premix Bag 1 BAG IV SCH (03:53)
[2023-01-16] MEDS: oxyCODONE 5 MG Tab PO PRN ×5 (04:03→21:20)
[2023-01-16 04:20] LABS: HEMATOCRIT 25.5 % (34.3-46.0); HEMOGLOBIN 8.5 g/dL (11.2-15.5); MEAN CORPUSCULAR HEMOGLOBIN 29.8 pg (31.6-35.5); MEAN CORPUSCULAR HGB CONC 33.3 g/dL (31.6-35.5); MEAN CORPUSCULAR VOLUME 89.5 fL (81.4-99.0); RED BLOOD CELL COUNT 2.85 M/uL (3.77-5.24); WHITE BLOOD CELL COUNT,WBC 4.4 K/uL (3.2-11.0)
[2023-01-16 04:47] LABS: A/G RATIO 0.7 (1.2-2.2); ALANINE AMINOTRANSFERASE,ALT 40 U/L (12-78); ALBUMIN 2.1 g/dL (3.4-5.0); ALKALINE PHOSPHATASE 109 U/L (46-116); ASPARTATE AMNIOTRANSFERASE,AST 27 U/L (15-37); BILIRUBIN TOTAL 0.9 mg/dL (0.2-1.0); BLOOD UREA NITROGEN,BUN 9 mg/dL (7-18); CALCIUM 7.8 mg/dL (8.5-10.1); CARBON DIOXIDE,CO2 28 mmol/L (21-32); CHLORIDE,CL 106 mmol/L (100-108); CREATININE 0.6 mg/dL (0.6-1.0); EST CRCL DRUG DOSING (CG) 90.88 mL/min; ESTIMATED GFR 111 mL/min (>60); GLUCOSE RANDOM 99 mg/dL (74-106); POTASSIUM,K 4.4 mmol/L (3.6-5.2); SODIUM,NA 139 mmol/L (140-148)
[2023-01-16 04:48] LABS: ANION GAP 9.4 mmol/L (5.0-14.0)
[2023-01-16] MEDS: Heparin Sodium 5,000 Units/ML Vial SUBCUT SCH ×2 (06:10→17:14)
[2023-01-16] MEDS ORDERED: Central Total Parenteral Nutrition Bag SCH (07:15)
[2023-01-16] MEDS: Acetaminophen 500 MG Tab PO SCH ×3 (08:16→23:48)
[2023-01-16] MEDS: Celecoxib 200 MG Cap PO SCH ×2 (08:16→21:20)
[2023-01-16] MEDS ORDERED: MVI IV SCH ×3 (09:30)
[2023-01-16] MEDS ORDERED: ZINC IV SCH ×3 (09:30)
[2023-01-16] MEDS ORDERED: VITAMIN K IV SCH ×3 (09:30)
[2023-01-16] MEDS ORDERED: MANGANESE IV SCH ×3 (09:30)
[2023-01-16] MEDS ORDERED: SELENIUM IV SCH ×3 (09:30)
[2023-01-16] MEDS ORDERED: COPPER IV SCH ×3 (09:30)
[2023-01-16] MEDS ORDERED: [UNRECOGNIZED DRUG - OTHER] IV SCH ×3 (09:30)
[2023-01-16] MEDS: Linezolid 600 MG in Premix Bag 1 BAG IV SCH ×2 (12:42→23:49)
[2023-01-16] MEDS: Ondansetron 4 MG/2 ML SDV IVPUSH PRN (15:25)
[2023-01-16] MEDS: Cyclobenzaprine 10 MG Tab PO PRN (17:06)
[2023-01-16] MEDS: Pantoprazole 40 MG Delayed-Release Granules 1 Packet PO SCH (17:09)
[2023-01-17 04:38] LABS: HEMOGLOBIN 10.4 g/dL (11.2-15.5); MEAN CORPUSCULAR HEMOGLOBIN 29.6 pg (31.6-35.5); MEAN CORPUSCULAR HGB CONC 33.5 g/dL (31.6-35.5); MEAN CORPUSCULAR VOLUME 88.3 fL (81.4-99.0); RED BLOOD CELL COUNT 3.51 M/uL (3.77-5.24); WHITE BLOOD CELL COUNT,WBC 4.1 K/uL (3.2-11.0)
[2023-01-17 05:01] LABS: A/G RATIO 0.8 (1.2-2.2); ALANINE AMINOTRANSFERASE,ALT 39 U/L (12-78); ALBUMIN 2.5 g/dL (3.4-5.0); ALKALINE PHOSPHATASE 123 U/L (46-116); ASPARTATE AMNIOTRANSFERASE,AST 31 U/L (15-37); BLOOD UREA NITROGEN,BUN 9 mg/dL (7-18); CALCIUM 8.4 mg/dL (8.5-10.1); CARBON DIOXIDE,CO2 27 mmol/L (21-32); CHLORIDE,CL 106 mmol/L (100-108); CREATININE 0.6 mg/dL (0.6-1.0); EST CRCL DRUG DOSING (CG) 90.88 mL/min; ESTIMATED GFR 111 mL/min (>60); GLUCOSE RANDOM 100 mg/dL (74-106); MAGNESIUM 2.3 mg/dL (1.8-2.4); PHOSPHORUS 5.3 mg/dL (2.5-4.9); POTASSIUM,K 4.7 mmol/L (3.6-5.2); PROTEIN TOTAL,TP 5.5 g/dL (6.4-8.2); SODIUM,NA 139 mmol/L (140-148)
[2023-01-17 05:13] LABS: ANION GAP 10.7 mmol/L (5.0-14.0)
[2023-01-17] MEDS: Heparin Sodium 5,000 Units/ML Vial SUBCUT SCH ×3 (06:05→17:38)
[2023-01-17] MEDS: Acetaminophen 500 MG Tab PO SCH ×2 (07:16→16:40)
[2023-01-17] MEDS: oxyCODONE 5 MG Tab PO PRN ×4 (07:16→21:49)
[2023-01-17] MEDS ORDERED: Central Total Parenteral Nutrition Bag SCH (07:30)
[2023-01-17] MEDS ORDERED: 1: AA 4.25%/Calcium/D10W/Lytes 1,000 ML with MVI, Adult with Vitamin K 10 ML, Zinc/Coppe IV SCH ×3 (10:00)
[2023-01-17] MEDS: Celecoxib 200 MG Cap PO SCH ×2 (10:17→21:49)
[2023-01-17] MEDS: Dextrose 5%-Lactated Ringers 1,000 ML IV SCH (10:38)
[2023-01-17] MEDS: Linezolid 600 MG in Premix Bag 1 BAG IV SCH ×2 (10:56→23:32)
[2023-01-17] MEDS: Ondansetron 4 MG/2 ML SDV IVPUSH PRN (12:22)
[2023-01-17] MEDS: Cyclobenzaprine 10 MG Tab PO PRN (13:31)
[2023-01-17] MEDS: Pantoprazole 40 MG Delayed-Release Granules 1 Packet PO SCH (16:40)
[2023-01-18] MEDS: Acetaminophen 500 MG Tab PO SCH ×2 (03:49→07:40)
[2023-01-18] MEDS: Cyclobenzaprine 10 MG Tab PO PRN (04:19)
[2023-01-18 04:39] LABS: HEMATOCRIT 32.2 % (34.3-46.0); HEMOGLOBIN 10.8 g/dL (11.2-15.5); MEAN CORPUSCULAR HEMOGLOBIN 29.8 pg (31.6-35.5); MEAN CORPUSCULAR HGB CONC 33.5 g/dL (31.6-35.5); MEAN CORPUSCULAR VOLUME 88.7 fL (81.4-99.0); RED BLOOD CELL COUNT 3.63 M/uL (3.77-5.24); WHITE BLOOD CELL COUNT,WBC 4.3 K/uL (3.2-11.0)
[2023-01-18 05:03] LABS: ALANINE AMINOTRANSFERASE,ALT 38 U/L (12-78); ALKALINE PHOSPHATASE 126 U/L (46-116); ASPARTATE AMNIOTRANSFERASE,AST 33 U/L (15-37); BILIRUBIN TOTAL 1.1 mg/dL (0.2-1.0); BLOOD UREA NITROGEN,BUN 8 mg/dL (7-18); CALCIUM 8.6 mg/dL (8.5-10.1); CARBON DIOXIDE,CO2 25 mmol/L (21-32); CHLORIDE,CL 104 mmol/L (100-108); CREATININE 0.7 mg/dL (0.6-1.0); ESTIMATED GFR 107 mL/min (>60); GLUCOSE RANDOM 95 mg/dL (74-106); PHOSPHORUS 5.4 mg/dL (2.5-4.9); POTASSIUM,K 4.7 mmol/L (3.6-5.2); PROTEIN TOTAL,TP 5.9 g/dL (6.4-8.2); SODIUM,NA 138 mmol/L (140-148)
[2023-01-18 05:12] LABS: ANION GAP 13.7 mmol/L (5.0-14.0)
[2023-01-18] MEDS: Heparin Sodium 5,000 Units/ML Vial SUBCUT SCH (06:20)
[2023-01-18] MEDS ORDERED: Central Total Parenteral Nutrition Bag SCH (07:30)
[2023-01-18 07:35] VITALS: BP 121/62; PULSE 63
[2023-01-18] MEDS: oxyCODONE 5 MG Tab PO PRN ×2 (07:39→11:17)
[2023-01-18] MEDS: Celecoxib 200 MG Cap PO SCH (09:13)
[2023-01-18] MEDS: Ondansetron 4 MG/2 ML SDV IVPUSH PRN (11:17)
[2023-01-18] MEDS: Linezolid 600 MG in Premix Bag 1 BAG IV SCH (11:22)
== END 2023-01-18 12:02 | disposition home or self-care (01) | DRG 221 ==
LOC: JP.ED 12:51 → UNDOADMOB 18:53 → JP.MS 18:53 → OBSVTOIN 01-08 12:45 → INTOOBSV 01-08 12:45
PROVIDERS: ADMIT Surgery; ATTEND Surgery
PROC: 0DT80ZZ Resection of Small Intestine, Open Approach (ICD-10-PCS; principal; 2023-01-08)
PROC: 3E0M05Z Introduction of Adhesion Barrier into Peritoneal Cavity, Open Approach (ICD-10-PCS; 2023-01-08)
PROC: 0DQ80ZZ Repair Small Intestine, Open Approach (ICD-10-PCS; 2023-01-08)
PROC: 0D164ZA Bypass Stomach to Jejunum, Percutaneous Endoscopic Approach (ICD-10-PCS; 2023-01-11)
DX: K56.600 Partial intestinal obstruction, unspecified as to cause (principal); K21.9 Gastro-esophageal reflux disease without esophagitis; K90.9 Intestinal malabsorption, unspecified; I10 Essential (primary) hypertension; K59.09 Other constipation; G89.29 Other chronic pain; E66.9 Obesity, unspecified; D51.9 Vitamin B12 deficiency anemia, unspecified; E86.0 Dehydration; Z20.822 Contact with and (suspected) exposure to COVID-19; E87.6 Hypokalemia; G43.909 Migraine, unspecified, not intractable, without status migrainosus; M32.9 Systemic lupus erythematosus, unspecified; M54.9 Dorsalgia, unspecified; J45.909 Unspecified asthma, uncomplicated; Z88.0 Allergy status to penicillin; Z88.8 Allergy status to other drugs, medicaments and biological substances; Z79.899 Other long term (current) drug therapy; Z90.49 Acquired absence of other specified parts of digestive tract; Z90.710 Acquired absence of both cervix and uterus; Z98.890 Other specified postprocedural states; Z90.721 Acquired absence of ovaries, unilateral; Z98.84 Bariatric surgery status; Z68.30 Body mass index [BMI] 30.0-30.9, adult
CPT/HCPCS: 36415; 36430; 71045; 71045-26; 74176; 74176-26; 74240; 74240-26; 76000; 78226; 78226-26; 80053; 82728; 83735; 83880; 84100; 85025; 85027; 86850; 86900; 86901; 86920; 86922; 87070; 87075; 87077; 87186; 87205; 88305; 88307; 88313; 88341; 88342; 96361; 96365; 96366; 96368; 96374; 96375; 96376; 99285; 99285-25; A9270-GY; A9537; C1726; C1751; C9113; G0378; J0131; J0171; J0330; J0456; J0694; J1100; J1170; J1200; J1642; J1644; J1790; J2020; J2185; J2250; J2270; J2310; J2405; J2704; J2710; J2795; J2805; J3010; J3411; J3420; J3475; J3480; J3490; J7030; J7120; J7121; P9016; P9047; Q9966; Q9967; U0002

== ENCOUNTER 2023-01-27 13:13 | Inpatient (IN) | payer BC ==
[2023-01-27] MEDS ORDERED: Ondansetron 4 MG/2 ML SDV IVPUSH ONE ×2 (13:55→15:19)
[2023-01-27] MEDS ORDERED: HYDROmorphone 0.5 MG/0.5 ML Syringe IVPUSH ONE ×2 (13:55→15:19)
[2023-01-27 14:12] LABS: BASOPHILS ABSOLUTE AUTO 0.03 K/uL (0.00-0.10); BASOPHILS PERCENT AUTO 0.4 % (0.1-1.3); EOSINOPHILS ABSOLUTE AUTO 0.04 K/uL (0.00-0.40); EOSINOPHILS PERCENT AUTO 0.5 % (0.0-5.4); HEMATOCRIT 34.5 % (34.3-46.0); IMMATURE GRAN ABSOLUTE AUTO 0.03 K/uL (0.00-0.23); IMMATURE GRAN PERCENT AUTO 0.4 % (0.0-0.7); LYMPHOCYTES ABSOLUTE AUTO 1.64 K/uL (0.8-3.3); LYMPHOCYTES PERCENT AUTO 19.6 % (11.4-47.7); MEAN CORPUSCULAR HEMOGLOBIN 29.7 pg (31.6-35.5); MEAN CORPUSCULAR HGB CONC 34.8 g/dL (31.6-35.5); MEAN CORPUSCULAR VOLUME 85.4 fL (81.4-99.0); MONOCYTES ABSOLUTE AUTO 0.56 K/uL (0.20-0.90); MONOCYTES PERCENT AUTO 6.7 % (3.3-12.6); NEUTROPHILS ABSOLUTE AUTO 6.07 K/uL (1.0-7.6); NEUTROPHILS PERCENT AUTO 72.4 % (40.0-78.1); PLATELET COUNT,PLT 177 K/uL (130-375); RED BLOOD CELL COUNT 4.04 M/uL (3.77-5.24); WHITE BLOOD CELL COUNT,WBC 8.4 K/uL (3.2-11.0)
[2023-01-27 14:32] LABS: A/G RATIO 0.9 (1.2-2.2); ALANINE AMINOTRANSFERASE,ALT 58 U/L (12-78); ALBUMIN 3.1 g/dL (3.4-5.0); ALKALINE PHOSPHATASE 122 U/L (46-116); ASPARTATE AMNIOTRANSFERASE,AST 41 U/L (15-37); BILIRUBIN TOTAL 2.1 mg/dL (0.2-1.0); BLOOD UREA NITROGEN,BUN 14 mg/dL (7-18); C-REACTIVE PROTEIN 1.95 mg/dL (0.0-0.3); CALCIUM 8.2 mg/dL (8.5-10.1); CARBON DIOXIDE,CO2 22 mmol/L (21-32); CHLORIDE,CL 102 mmol/L (100-108); CREATININE 0.6 mg/dL (0.6-1.0); EST CRCL DRUG DOSING (CG) 95.88 mL/min; ESTIMATED GFR 111 mL/min (>60); GLUCOSE RANDOM 80 mg/dL (74-106); LIPASE 237 U/L (73-393); POTASSIUM,K 3.3 mmol/L (3.6-5.2); PROTEIN TOTAL,TP 6.4 g/dL (6.4-8.2); SODIUM,NA 138 mmol/L (140-148)
[2023-01-27 14:36] LABS: ANION GAP 17.3 mmol/L (5.0-14.0)
[2023-01-27] MEDS ORDERED: Sodium Chloride 0.9% 10 ML Syringe FLUSH ONE (14:44)
[2023-01-27] MEDS ORDERED: Iopamidol 612 MG/ML 100 ML Bottle IV ONE (14:44)
[2023-01-27] MEDS ORDERED: Sodium Chloride 0.9% 50 ML IV ONE (14:44)
[2023-01-27] MEDS ORDERED: Sodium Chloride 0.9% 1,000 ML IV SCH (14:45)
[2023-01-27] MEDS ORDERED: Acetaminophen 325 MG Tab PO PRN (19:33)
[2023-01-27] MEDS ORDERED: Naloxone 0.4 MG/ML SDV IVPUSH PRN (19:33)
[2023-01-27] MEDS ORDERED: Albuterol/Ipratropium 3.0-0.5 MG/3 ML Neb Soln INH PRN (19:33)
[2023-01-27] MEDS ORDERED: Sodium Chloride 0.9% 10 ML Syringe FLUSH PRN (19:33)
[2023-01-27] MEDS ORDERED: Albuterol 6.7 GM Inhaler INH PRN (19:33)
[2023-01-27] MEDS: Lactated Ringers 1,000 ML IV SCH (19:57)
[2023-01-27] MEDS: Potassium Chloride 10 MEQ in Premix Bag 1 BAG IV SCH ×4 (20:02→23:17)
[2023-01-27] MEDS: HYDROmorphone 0.5 MG/0.5 ML Syringe IVPUSH PRN (20:06)
[2023-01-27] MEDS: Ondansetron 4 MG/2 ML SDV IV PRN (20:06)
[2023-01-27] MEDS: Pantoprazole 40 MG Vial IV SCH (20:12)
[2023-01-27] MEDS: Celecoxib 200 MG Cap PO SCH (20:24)
[2023-01-27] MEDS ORDERED: Scopolamine 1.5 MG Transdermal Patch ONE (20:29)
[2023-01-28] MEDS: Ondansetron 4 MG/2 ML SDV IV PRN ×5 (00:07→21:27)
[2023-01-28] MEDS: HYDROmorphone 0.5 MG/0.5 ML Syringe IVPUSH PRN ×5 (01:05→21:23)
[2023-01-28] MEDS: Lactated Ringers 1,000 ML IV SCH ×2 (03:21→14:44)
[2023-01-28 04:57] LABS: HEMOGLOBIN 9.7 g/dL (11.2-15.5); MEAN CORPUSCULAR HEMOGLOBIN 29.3 pg (31.6-35.5); MEAN CORPUSCULAR HGB CONC 33.4 g/dL (31.6-35.5); MEAN CORPUSCULAR VOLUME 87.6 fL (81.4-99.0); RED BLOOD CELL COUNT 3.31 M/uL (3.77-5.24); WHITE BLOOD CELL COUNT,WBC 7.2 K/uL (3.2-11.0)
[2023-01-28 05:14] LABS: CALCIUM 8.1 mg/dL (8.5-10.1); CREATININE 0.5 mg/dL (0.6-1.0); EST CRCL DRUG DOSING (CG) 115.06 mL/min; MAGNESIUM 1.6 mg/dL (1.8-2.4); PHOSPHORUS 3.7 mg/dL (2.5-4.9); POTASSIUM,K 3.7 mmol/L (3.6-5.2)
[2023-01-28 05:26] LABS: ANION GAP 15.7 mmol/L (5.0-14.0)
[2023-01-28] MEDS: Pantoprazole 40 MG Vial IV SCH ×2 (07:30→19:15)
[2023-01-28] MEDS ORDERED: Magnesium Sulfate/Water 2 GM in Premix Bag 1 BAG IV SCH ×2 (08:00→10:00)
[2023-01-28] MEDS ORDERED: Scopolamine 1.5 MG Transdermal Patch TRDERM SCH (09:00)
[2023-01-28] MEDS: Enoxaparin 40 MG/0.4 ML Syringe SUBCUT SCH (09:10)
[2023-01-28] MEDS: Celecoxib 200 MG Cap PO SCH ×2 (09:10→20:36)
[2023-01-28] MEDS: SCOPOLAMINE PATCH CHECK TOP SCH (09:12)
[2023-01-28] MEDS: Azithromycin 125 MG in Sodium Chloride 0.9% 100 ML IV SCH ×2 (11:16→22:45)
[2023-01-28] MEDS: methylPREDNISolone Sodium Succinate 125 MG/2 ML SDV IVPUSH SCH ×3 (11:16→21:34)
[2023-01-28] MEDS: Magnesium Sulfate/Water 2 GM in Premix Bag 1 BAG IV SCH ×2 (15:07→20:36)
[2023-01-29] MEDS: Magnesium Sulfate/Water 2 GM in Premix Bag 1 BAG IV SCH ×4 (03:31→20:23)
[2023-01-29] MEDS: methylPREDNISolone Sodium Succinate 125 MG/2 ML SDV IVPUSH SCH ×4 (03:32→21:36)
[2023-01-29] MEDS: Ondansetron 4 MG/2 ML SDV IV PRN ×5 (04:30→21:36)
[2023-01-29] MEDS: HYDROmorphone 0.5 MG/0.5 ML Syringe IVPUSH PRN ×5 (04:31→20:28)
[2023-01-29] MEDS: Pantoprazole 40 MG Vial IV SCH ×2 (07:17→19:46)
[2023-01-29] MEDS ORDERED: Central Total Parenteral Nutrition Bag SCH (07:30)
[2023-01-29] MEDS: SCOPOLAMINE PATCH CHECK TOP SCH (08:58)
[2023-01-29] MEDS: Enoxaparin 40 MG/0.4 ML Syringe SUBCUT SCH (08:58)
[2023-01-29] MEDS: Celecoxib 200 MG Cap PO SCH ×2 (08:59→20:23)
[2023-01-29] MEDS ORDERED: Iopamidol 612 MG/ML 100 ML Bottle ONE (09:49)
[2023-01-29] MEDS: Azithromycin 125 MG in Sodium Chloride 0.9% 100 ML IV SCH ×2 (10:38→22:35)
[2023-01-29] MEDS: Lactated Ringers 1,000 ML IV SCH (14:46)
[2023-01-29] MEDS: 1: AA 5%/Calcium/D15W/Lytes 1,000 ML with MVI, Adult with Vitamin K 10 ML, Zinc/Copper/M IV SCH ×3 (14:46)
[2023-01-29] MEDS ORDERED: Fat Emulsion 100 ML IV SCH (16:00)
[2023-01-30] MEDS: Insulin Lispro 100 Unit/ML 3 ML KwikPen SUBCUT SCH ×5 (00:21→22:08)
[2023-01-30] MEDS: HYDROmorphone 0.5 MG/0.5 ML Syringe IVPUSH PRN ×7 (00:30→22:12)
[2023-01-30] MEDS: Magnesium Sulfate/Water 2 GM in Premix Bag 1 BAG IV SCH ×2 (03:36→08:18)
[2023-01-30] MEDS: methylPREDNISolone Sodium Succinate 125 MG/2 ML SDV IVPUSH SCH ×4 (03:36→21:10)
[2023-01-30] MEDS: 1: AA 5%/Calcium/D15W/Lytes 1,000 ML with MVI, Adult with Vitamin K 10 ML, Zinc/Copper/M IV SCH ×6 (03:51→16:31)
[2023-01-30] MEDS: Ondansetron 4 MG/2 ML SDV IV PRN ×5 (03:51→22:08)
[2023-01-30 04:35] LABS: HEMATOCRIT 28.7 % (34.3-46.0); HEMOGLOBIN 9.9 g/dL (11.2-15.5); MEAN CORPUSCULAR HEMOGLOBIN 29.9 pg (31.6-35.5); MEAN CORPUSCULAR HGB CONC 34.5 g/dL (31.6-35.5); MEAN CORPUSCULAR VOLUME 86.7 fL (81.4-99.0); RED BLOOD CELL COUNT 3.31 M/uL (3.77-5.24); WHITE BLOOD CELL COUNT,WBC 7.2 K/uL (3.2-11.0)
[2023-01-30 05:03] LABS: A/G RATIO 0.7 (1.2-2.2); ALANINE AMINOTRANSFERASE,ALT 50 U/L (12-78); ALBUMIN 2.4 g/dL (3.4-5.0); ALKALINE PHOSPHATASE 90 U/L (46-116); ASPARTATE AMNIOTRANSFERASE,AST 25 U/L (15-37); BILIRUBIN TOTAL 0.7 mg/dL (0.2-1.0); BLOOD UREA NITROGEN,BUN 16 mg/dL (7-18); CALCIUM 8.1 mg/dL (8.5-10.1); CARBON DIOXIDE,CO2 29 mmol/L (21-32); CHLORIDE,CL 101 mmol/L (100-108); CREATININE 0.6 mg/dL (0.6-1.0); EST CRCL DRUG DOSING (CG) 95.85 mL/min; ESTIMATED GFR 111 mL/min (>60); GLUCOSE RANDOM 238 mg/dL (74-106); PHOSPHORUS 2.5 mg/dL (2.5-4.9); POTASSIUM,K 4.2 mmol/L (3.6-5.2); SODIUM,NA 134 mmol/L (140-148)
[2023-01-30 06:12] LABS: ANION GAP 8.2 mmol/L (5.0-14.0)
[2023-01-30] MEDS: Pantoprazole 40 MG Vial IV SCH ×2 (07:17→20:00)
[2023-01-30] MEDS ORDERED: Central Total Parenteral Nutrition Bag SCH (07:30)
[2023-01-30] MEDS: Celecoxib 200 MG Cap PO SCH ×2 (08:18→21:10)
[2023-01-30] MEDS: Enoxaparin 40 MG/0.4 ML Syringe SUBCUT SCH (08:18)
[2023-01-30] MEDS: SCOPOLAMINE PATCH CHECK TOP SCH (09:10)
[2023-01-30] MEDS: Scopolamine 1.5 MG Transdermal Patch TRDERM SCH (09:38)
[2023-01-30] MEDS: Azithromycin 125 MG in Sodium Chloride 0.9% 100 ML IV SCH ×2 (10:33→21:16)
[2023-01-30] MEDS: Fat Emulsion 100 ML IV SCH (16:41)
[2023-01-31] MEDS: methylPREDNISolone Sodium Succinate 125 MG/2 ML SDV IVPUSH SCH ×4 (04:29→21:13)
[2023-01-31] MEDS: Ondansetron 4 MG/2 ML SDV IV PRN ×5 (04:30→23:36)
[2023-01-31] MEDS: HYDROmorphone 0.5 MG/0.5 ML Syringe IVPUSH PRN ×3 (04:31→13:18)
[2023-01-31] MEDS: Insulin Lispro 100 Unit/ML 3 ML KwikPen SUBCUT SCH ×4 (04:32→22:44)
[2023-01-31] MEDS: 1: AA 5%/Calcium/D15W/Lytes 1,000 ML with MVI, Adult with Vitamin K 10 ML, Zinc/Copper/M IV SCH ×6 (06:05→19:14)
[2023-01-31] MEDS ORDERED: Albuterol 6.7 GM Inhaler INH PRN (07:24)
[2023-01-31] MEDS: Pantoprazole 40 MG Vial IV SCH (07:26)
[2023-01-31] MEDS ORDERED: Nystatin Crm 15 GM Tube TOP PRN (07:33)
[2023-01-31] MEDS ORDERED: Central Total Parenteral Nutrition Bag SCH (07:45)
[2023-01-31] MEDS: Enoxaparin 40 MG/0.4 ML Syringe SUBCUT SCH (08:57)
[2023-01-31] MEDS: Docusate Sodium 100 MG Cap PO SCH ×2 (08:57→21:14)
[2023-01-31] MEDS: Celecoxib 200 MG Cap PO SCH ×2 (08:57→21:14)
[2023-01-31] MEDS: Bisacodyl 5 MG Tab PO SCH ×2 (08:57→21:14)
[2023-01-31] MEDS: Azithromycin 125 MG in Sodium Chloride 0.9% 100 ML IV SCH ×2 (10:11→21:13)
[2023-01-31 13:33] LABS: HEMATOCRIT 30.1 % (34.3-46.0); HEMOGLOBIN 10.1 g/dL (11.2-15.5); IMMATURE GRAN ABSOLUTE AUTO 0.06 K/uL (0.00-0.23); IMMATURE GRAN PERCENT AUTO 0.9 % (0.0-0.7); LYMPHOCYTES ABSOLUTE AUTO 0.55 K/uL (0.8-3.3); MEAN CORPUSCULAR HEMOGLOBIN 29.7 pg (31.6-35.5); MEAN CORPUSCULAR HGB CONC 33.6 g/dL (31.6-35.5); MEAN CORPUSCULAR VOLUME 88.5 fL (81.4-99.0); MONOCYTES ABSOLUTE AUTO 0.38 K/uL (0.20-0.90); MONOCYTES PERCENT AUTO 5.5 % (3.3-12.6); NEUTROPHILS ABSOLUTE AUTO 5.89 K/uL (1.0-7.6); NEUTROPHILS PERCENT AUTO 85.6 % (40.0-78.1); PLATELET COUNT,PLT 179 K/uL (130-375); WHITE BLOOD CELL COUNT,WBC 6.9 K/uL (3.2-11.0)
[2023-01-31 13:54] LABS: A/G RATIO 0.7 (1.2-2.2); ALANINE AMINOTRANSFERASE,ALT 86 U/L (12-78); ALBUMIN 2.6 g/dL (3.4-5.0); ALKALINE PHOSPHATASE 92 U/L (46-116); ASPARTATE AMNIOTRANSFERASE,AST 58 U/L (15-37); BILIRUBIN TOTAL 0.5 mg/dL (0.2-1.0); BLOOD UREA NITROGEN,BUN 24 mg/dL (7-18); CARBON DIOXIDE,CO2 28 mmol/L (21-32); CHLORIDE,CL 103 mmol/L (100-108); CREATININE 0.6 mg/dL (0.6-1.0); EST CRCL DRUG DOSING (CG) 95.85 mL/min; ESTIMATED GFR 111 mL/min (>60); GLUCOSE RANDOM 135 mg/dL (74-106); POTASSIUM,K 4.1 mmol/L (3.6-5.2); PROTEIN TOTAL,TP 6.2 g/dL (6.4-8.2); SODIUM,NA 135 mmol/L (140-148)
[2023-01-31 13:55] LABS: ANION GAP 8.1 mmol/L (5.0-14.0)
[2023-01-31] MEDS: Lactated Ringers 1,000 ML IV SCH (15:28)
[2023-01-31] MEDS: Pantoprazole 40 MG Tab.CR PO SCH (16:07)
[2023-01-31] MEDS: Fat Emulsion 100 ML IV SCH (16:07)
[2023-01-31] MEDS: HYDROmorphone 2 MG Tab PO PRN ×2 (17:37→23:36)
[2023-02-01] MEDS: methylPREDNISolone Sodium Succinate 125 MG/2 ML SDV IVPUSH SCH ×4 (03:31→21:15)
[2023-02-01] MEDS: Insulin Lispro 100 Unit/ML 3 ML KwikPen SUBCUT SCH ×4 (04:06→22:01)
[2023-02-01 04:16] LABS: HEMATOCRIT 28.9 % (34.3-46.0); HEMOGLOBIN 9.8 g/dL (11.2-15.5); MEAN CORPUSCULAR HEMOGLOBIN 30.1 pg (31.6-35.5); MEAN CORPUSCULAR HGB CONC 33.9 g/dL (31.6-35.5); MEAN CORPUSCULAR VOLUME 88.7 fL (81.4-99.0); RED BLOOD CELL COUNT 3.26 M/uL (3.77-5.24); WHITE BLOOD CELL COUNT,WBC 5.5 K/uL (3.2-11.0)
[2023-02-01] MEDS: Ondansetron 4 MG/2 ML SDV IV PRN ×3 (04:35→21:23)
[2023-02-01 04:37] LABS: A/G RATIO 0.8 (1.2-2.2); ALANINE AMINOTRANSFERASE,ALT 120 U/L (12-78); ALBUMIN 2.4 g/dL (3.4-5.0); ALKALINE PHOSPHATASE 80 U/L (46-116); ASPARTATE AMNIOTRANSFERASE,AST 80 U/L (15-37); BILIRUBIN TOTAL 0.4 mg/dL (0.2-1.0); BLOOD UREA NITROGEN,BUN 17 mg/dL (7-18); CARBON DIOXIDE,CO2 29 mmol/L (21-32); CHLORIDE,CL 106 mmol/L (100-108); CREATININE 0.5 mg/dL (0.6-1.0); EST CRCL DRUG DOSING (CG) 115.02 mL/min; ESTIMATED GFR 116 mL/min (>60); GLUCOSE RANDOM 153 mg/dL (74-106); MAGNESIUM 2.2 mg/dL (1.8-2.4); PHOSPHORUS 2.9 mg/dL (2.5-4.9); PROTEIN TOTAL,TP 5.6 g/dL (6.4-8.2); SODIUM,NA 139 mmol/L (140-148)
[2023-02-01] MEDS ORDERED: Bupivacaine 0.5% 50 ML MDV ONE (07:04)
[2023-02-01] MEDS ORDERED: fentaNYL 100 MCG/2 ML SDV ONE (07:05)
[2023-02-01] MEDS ORDERED: Glycopyrrolate 0.2 MG/ML 5 ML MDV ONE (07:45)
[2023-02-01] MEDS ORDERED: Propofol 200 MG/20 ML SDV ONE ×2 (07:45)
[2023-02-01] MEDS ORDERED: Midazolam 1 MG/ML 2 ML SDV ONE (07:45)
[2023-02-01] MEDS ORDERED: Ondansetron 4 MG/2 ML SDV ONE (07:45)
[2023-02-01] MEDS ORDERED: Lidocaine 1% with EPINEPHrine 1:100,000 20 ML MDV INJECT ONE (08:08)
[2023-02-01] MEDS ORDERED: Sodium Chloride 0.9% 10 ML ONE (08:20)
[2023-02-01] MEDS: 1: AA 5%/Calcium/D15W/Lytes 1,000 ML with MVI, Adult with Vitamin K 10 ML, Zinc/Copper/M IV SCH ×6 (09:16→21:23)
[2023-02-01] MEDS: Docusate Sodium 100 MG Cap PO SCH ×2 (09:24→21:14)
[2023-02-01] MEDS: Celecoxib 200 MG Cap PO SCH ×2 (09:24→21:15)
[2023-02-01] MEDS: Enoxaparin 40 MG/0.4 ML Syringe SUBCUT SCH (09:24)
[2023-02-01] MEDS: Pantoprazole 40 MG Tab.CR PO SCH ×2 (09:24→16:36)
[2023-02-01] MEDS: Bisacodyl 5 MG Tab PO SCH ×2 (09:24→21:14)
[2023-02-01] MEDS: Azithromycin 125 MG in Sodium Chloride 0.9% 100 ML IV SCH (09:27)
[2023-02-01] MEDS ORDERED: Central Total Parenteral Nutrition Bag SCH (09:45)
[2023-02-01] MEDS: HYDROmorphone 2 MG Tab PO PRN ×3 (10:33→22:49)
[2023-02-01] MEDS: VERIFY SCOP PATCH TOP SCH (12:17)
[2023-02-01] MEDS: Lactated Ringers 1,000 ML IV SCH (13:17)
[2023-02-01] MEDS: Fat Emulsion 100 ML IV SCH (16:36)
[2023-02-01] MEDS ORDERED: Cyclobenzaprine 10 MG Tab PO PRN (21:24)
[2023-02-02] MEDS: methylPREDNISolone Sodium Succinate 125 MG/2 ML SDV IVPUSH SCH ×2 (03:37→09:08)
[2023-02-02] MEDS: Insulin Lispro 100 Unit/ML 3 ML KwikPen SUBCUT SCH (04:13)
[2023-02-02 04:26] LABS: BASOPHILS PERCENT AUTO 0.2 % (0.1-1.3); HEMATOCRIT 30.1 % (34.3-46.0); HEMOGLOBIN 10.1 g/dL (11.2-15.5); IMMATURE GRAN PERCENT AUTO 1.7 % (0.0-0.7); LYMPHOCYTES ABSOLUTE AUTO 0.87 K/uL (0.8-3.3); LYMPHOCYTES PERCENT AUTO 15.1 % (11.4-47.7); MEAN CORPUSCULAR HEMOGLOBIN 29.4 pg (31.6-35.5); MEAN CORPUSCULAR HGB CONC 33.6 g/dL (31.6-35.5); MEAN CORPUSCULAR VOLUME 87.8 fL (81.4-99.0); MONOCYTES ABSOLUTE AUTO 0.48 K/uL (0.20-0.90); MONOCYTES PERCENT AUTO 8.3 % (3.3-12.6); NEUTROPHILS ABSOLUTE AUTO 4.32 K/uL (1.0-7.6); NEUTROPHILS PERCENT AUTO 74.7 % (40.0-78.1); PLATELET COUNT,PLT 177 K/uL (130-375); RED BLOOD CELL COUNT 3.43 M/uL (3.77-5.24); WHITE BLOOD CELL COUNT,WBC 5.8 K/uL (3.2-11.0)
[2023-02-02 04:29] LABS: BASOPHILS ABSOLUTE AUTO 0.01 K/uL (0.00-0.10)
[2023-02-02 04:44] LABS: A/G RATIO 0.7 (1.2-2.2); ALANINE AMINOTRANSFERASE,ALT 323 U/L (12-78); ALBUMIN 2.3 g/dL (3.4-5.0); ALKALINE PHOSPHATASE 94 U/L (46-116); ASPARTATE AMNIOTRANSFERASE,AST 150 U/L (15-37); BILIRUBIN TOTAL 0.6 mg/dL (0.2-1.0); BLOOD UREA NITROGEN,BUN 15 mg/dL (7-18); CARBON DIOXIDE,CO2 28 mmol/L (21-32); CHLORIDE,CL 104 mmol/L (100-108); CREATININE 0.5 mg/dL (0.6-1.0); EST CRCL DRUG DOSING (CG) 115.02 mL/min; ESTIMATED GFR 116 mL/min (>60); GLUCOSE RANDOM 167 mg/dL (74-106); MAGNESIUM 2.2 mg/dL (1.8-2.4); PHOSPHORUS 3.5 mg/dL (2.5-4.9); POTASSIUM,K 4.1 mmol/L (3.6-5.2); PROTEIN TOTAL,TP 5.4 g/dL (6.4-8.2); SODIUM,NA 138 mmol/L (140-148)
[2023-02-02 04:57] LABS: ANION GAP 10.1 mmol/L (5.0-14.0)
[2023-02-02] MEDS: Pantoprazole 40 MG Tab.CR PO SCH (07:19)
[2023-02-02] MEDS: Celecoxib 200 MG Cap PO SCH (09:06)
[2023-02-02] MEDS: Enoxaparin 40 MG/0.4 ML Syringe SUBCUT SCH (09:07)
[2023-02-02] MEDS: Bisacodyl 5 MG Tab PO SCH (09:07)
[2023-02-02] MEDS: Docusate Sodium 100 MG Cap PO SCH (09:07)
[2023-02-02] MEDS: VERIFY SCOP PATCH TOP SCH (09:07)
[2023-02-02] MEDS: Scopolamine 1.5 MG Transdermal Patch TRDERM SCH (09:08)
[2023-02-02 09:12] VITALS: BP 141/91; PULSE 56
== END 2023-02-02 09:45 | disposition home or self-care (01) | DRG 251 ==
LOC: JP.ED 13:13 → JP.MS 17:32
PROVIDERS: ADMIT Hospitalist; ATTEND Surgery
DX: R10.84 Generalized abdominal pain (principal); E87.6 Hypokalemia; I10 Essential (primary) hypertension; K21.9 Gastro-esophageal reflux disease without esophagitis; J45.909 Unspecified asthma, uncomplicated; K59.09 Other constipation; G89.29 Other chronic pain; R11.2 Nausea with vomiting, unspecified; B37.2 Candidiasis of skin and nail; D51.9 Vitamin B12 deficiency anemia, unspecified; M54.9 Dorsalgia, unspecified; Z20.822 Contact with and (suspected) exposure to COVID-19; G43.909 Migraine, unspecified, not intractable, without status migrainosus; E66.9 Obesity, unspecified; Z68.37 Body mass index [BMI] 37.0-37.9, adult; Z88.8 Allergy status to other drugs, medicaments and biological substances; Z88.1 Allergy status to other antibiotic agents; Z91.040 Latex allergy status; Z90.49 Acquired absence of other specified parts of digestive tract; Z90.710 Acquired absence of both cervix and uterus; Z90.722 Acquired absence of ovaries, bilateral; Z98.84 Bariatric surgery status; Z98.890 Other specified postprocedural states
CPT/HCPCS: 36415; 74176; 74176-26; 74177; 76000; 80048; 80053; 82947; 83605; 83690; 83735; 84100; 85025; 85027; 86140; 93005; 96361; 96374; 96375; 96376; 99285; 99285-25; A9270-GY; C1726; C9113; J0456; J1170; J1642; J1650; J1815; J2250; J2405; J2704; J2930; J3010; J3475; J3480; J3490; J7030; J7120; Q9967; U0002

== ENCOUNTER 2023-03-12 07:17 | Day surgery (SDC) | payer BC ==
[2023-03-12] MEDS ORDERED: Propofol 200 MG/20 ML SDV ONE (07:24)
[2023-03-12] MEDS ORDERED: Midazolam 1 MG/ML 2 ML SDV ONE (07:25)
[2023-03-12] MEDS ORDERED: fentaNYL 50 MCG/ML SDV ONE (07:25)
[2023-03-12] MEDS ORDERED: Dextrose 5%-Lactated Ringers 1,000 ML IV SCH (08:00)
[2023-03-12] MEDS ORDERED: Glycopyrrolate 0.2 MG/ML 2 ML SDV IVPUSH STA (08:01)
[2023-03-12] MEDS ORDERED: Ondansetron 4 MG/2 ML SDV ONE (08:33)
[2023-03-12] MEDS ORDERED: Dexamethasone 4 MG/ML SDV ONE (08:33)
[2023-03-12 09:22] LABS: BASOPHILS PERCENT AUTO 0.3 % (0.1-1.3); EOSINOPHILS ABSOLUTE AUTO 0.04 K/uL (0.00-0.40); HEMATOCRIT 26.7 % (34.3-46.0); HEMOGLOBIN 8.8 g/dL (11.2-15.5); IMMATURE GRAN PERCENT AUTO 0.3 % (0.0-0.7); LYMPHOCYTES ABSOLUTE AUTO 1.24 K/uL (0.8-3.3); LYMPHOCYTES PERCENT AUTO 31.9 % (11.4-47.7); MEAN CORPUSCULAR HEMOGLOBIN 30.1 pg (31.6-35.5); MEAN CORPUSCULAR VOLUME 91.4 fL (81.4-99.0); MONOCYTES ABSOLUTE AUTO 0.36 K/uL (0.20-0.90); MONOCYTES PERCENT AUTO 9.3 % (3.3-12.6); NEUTROPHILS ABSOLUTE AUTO 2.23 K/uL (1.0-7.6); NEUTROPHILS PERCENT AUTO 57.2 % (40.0-78.1); PLATELET COUNT,PLT 145 K/uL (130-375); RED BLOOD CELL COUNT 2.92 M/uL (3.77-5.24); WHITE BLOOD CELL COUNT,WBC 3.9 K/uL (3.2-11.0)
[2023-03-12 09:29] LABS: BASOPHILS ABSOLUTE AUTO 0.01 K/uL (0.00-0.10); IMMATURE GRAN ABSOLUTE AUTO 0.01 K/uL (0.00-0.23)
[2023-03-12 09:35] VITALS: BP 127/64; PULSE 74
[2023-03-12 09:44] LABS: A/G RATIO 0.7 (1.2-2.2); ALANINE AMINOTRANSFERASE,ALT 27 U/L (12-78); ALBUMIN 2.6 g/dL (3.4-5.0); ALKALINE PHOSPHATASE 106 U/L (46-116); ASPARTATE AMNIOTRANSFERASE,AST 19 U/L (15-37); BLOOD UREA NITROGEN,BUN 29 mg/dL (7-18); CALCIUM 8.1 mg/dL (8.5-10.1); CARBON DIOXIDE,CO2 26 mmol/L (21-32); CHLORIDE,CL 104 mmol/L (100-108); CREATININE 0.5 mg/dL (0.6-1.0); EST CRCL DRUG DOSING (CG) 115.06 mL/min; ESTIMATED GFR 116 mL/min (>60); GLUCOSE RANDOM 78 mg/dL (74-106); MAGNESIUM 2.2 mg/dL (1.8-2.4); POTASSIUM,K 4.4 mmol/L (3.6-5.2); PROTEIN TOTAL,TP 6.1 g/dL (6.4-8.2); SODIUM,NA 136 mmol/L (140-148); TRIGLYCERIDES 49 mg/dL (15-150)
[2023-03-12 09:51] LABS: ANION GAP 10.4 mmol/L (5.0-14.0)
== END 2023-03-12 10:02 | disposition home or self-care (01) ==
LOC: JP.SDS 07:17
PROVIDERS: ATTEND Surgery
DX: E22.2 Syndrome of inappropriate secretion of antidiuretic hormone (principal)
CPT/HCPCS: 36415; 43249; 76000; 80053; 83735; 84100; 84478; 85025; C1726; J1100; J1642; J2250; J2405; J2704; J3010; J3490; J7121